=== PATIENT | female | born 1995 | race Two or more races ===

== ENCOUNTER 2024-02-18 14:55 | Observation (INO) | payer BC ==
[~2024-02-18] VITALS: Ht 167.6 cm; Wt 86.6 kg
[~2024-02-18 14:55] MED LIST: METO-281 PO; PANT40TA2 PO
[2024-02-18] MEDS ORDERED: PREN1TAB71 OR (15:13)
[2024-02-18] MEDS: BETAMETHASONE ACET (30mg/5ml) 5ml Vial 6mg/ml IM ONE (15:58)
== END 2024-02-18 16:26 | disposition home or self-care (01) ==
LOC: UNDOADMOB 14:55 → LDRP 14:55 → UNDODISOB 16:26
PROVIDERS: ADMIT Obstetrics & Gynecology; ATTEND Obstetrics & Gynecology
DX: O99.612 Diseases of the digestive system complicating pregnancy, second trimester (principal); K29.70 Gastritis, unspecified, without bleeding; O21.2 Late vomiting of pregnancy; Z3A.26 26 weeks gestation of pregnancy
CPT/HCPCS: 59025; 81002; 96372; G0378

== ENCOUNTER 2024-05-23 16:50 | Observation (INO) | payer BC ==
[~2024-05-23 16:50] MED LIST changes: +PREN1TAB71 OR
== END 2024-05-23 18:49 | disposition home or self-care (01) ==
LOC: LDRP 16:50
PROVIDERS: ADMIT Obstetrics & Gynecology; ATTEND Obstetrics & Gynecology
DX: O48.0 Post-term pregnancy (principal); O26.893 Other specified pregnancy related conditions, third trimester; R10.9 Unspecified abdominal pain; Z3A.40 40 weeks gestation of pregnancy
CPT/HCPCS: 59025; 76818; 81002; 94760; G0378

== ENCOUNTER 2024-05-24 07:21 | Observation (INO) | payer BC ==
[~2024-05-24] VITALS: Ht 167.6 cm; Wt 91.6 kg
== END 2024-05-24 08:50 | disposition home or self-care (01) ==
LOC: LDRP 07:21 → UNDOADMOB 07:21 → LDRP 07:29 → UNDODISOB 08:50
PROVIDERS: ADMIT Obstetrics & Gynecology; ATTEND Obstetrics & Gynecology
DX: O47.1 False labor at or after 37 completed weeks of gestation (principal); O48.0 Post-term pregnancy; Z3A.40 40 weeks gestation of pregnancy
CPT/HCPCS: 59025; 81002; 94760; G0378

== ENCOUNTER 2024-05-25 11:17 | Inpatient (IN) | payer BC ==
[~2024-05-25] VITALS: Ht 167.6 cm; Wt 91.6 kg
[2024-05-25] MEDS ORDERED: BUTORPHANOL TARTRATE 2 MG/1 ML VIAL IV PRN ×2 (11:45)
[2024-05-25] MEDS ORDERED: LIDOCAINE 2%HCL (LOCAL ANESTH.) INJ 20ML MDV IJ PRN (11:45)
[2024-05-25 12:19] LABS: Basophils # (auto) 0 10 ^3/uL (0-0.2); Basophils % (auto) 0.3 % (0.0-2.0); Eosinophils # (auto) 0.1 10 ^3/uL (0-0.8); Eosinophils % (auto) 0.8 % (0.0-7.0); Hematocrit 36.3 % (36.0-46.0); Hemoglobin 12.9 g/dL (12.2-16.2); Lymphocytes # (auto) 1.7 10 ^3/uL (0.4-5.4); Lymphocytes % (auto) 20.6 % (10.0-50.0); Mean Corpuscular Hemoglobin 31.9 pg (28.0-32.0); Mean Corpuscular Hgb Conc. 35.5 g/dL (32.0-36.0); Mean Corpuscular Volume 89.7 fL (80.0-100.0); Monocytes # (auto) 0.7 10 ^3/uL (0-1.3); Monocytes % (auto) 8.4 % (0.0-12.0); Neutrophils # (auto) 5.8 10 ^3/uL (1.6-8.6); Neutrophils % (auto) 69.9 % (37.0-80.0); Nucleated Red Blood Cells % 0.1 %; Red Blood Cells 4.04 10^6/uL (4.0-5.20); Red Cell Distribution Width 13.7 % (11.8-14.3); White Blood Cell 8.4 10^3/uL (4.4-10.8)
[2024-05-25 12:27] LABS: Urine Bacteria FEW /hpf (None Seen); Urine Blood 1+ /uL (Negative); Urine Clarity Clear (Clear); Urine Color Yellow (Yellow); Urine Protein, UAD Negative (Negative); Urine Specific Gravity 1.011 (1.001-1.035); Urine Urobilinogen 2 mg/dL (Negative); Urine WBC 5 /hpf (0 - 5)
[2024-05-25 12:30] LABS: INR 1.02 (0.9-1.15); Partial Thromboplastin Time 26.4 SEC (24.5-34.5); Prothrombin Time 10.8 sec (9.3-11.8)
[2024-05-25 12:42] LABS: Alanine Aminotransferase 151 U/L (7-40); Albumin 3.9 g/dL (3.2-4.8); Alkaline Phosphatase 282 U/L (46-116); Anion Gap 6 (5-15); Aspartate Aminotransferase 57 U/L (13-40); Bilirubin, Total 1.1 mg/dL (0.2-1.0); Calcium 9.5 mg/dL (8.5-10.1); Carbon Dioxide 22 mmol/L (20-30); Chloride 108 mmol/L (98-107); Glucose 75 mg/dL (74-106); Potassium 3.9 mmol/L (3.5-5.1); Sodium 136 mmol/L (136-145); Total Protein 6.4 g/dL (5.7-8.2)
[2024-05-25 12:43] LABS: BUN/Creatinine Ratio 12.5 (10.0-20.0); Blood Urea Nitrogen < 5 mg/dL (9-23)
[2024-05-25 12:52] LABS: Amphetamine Screen, Urine Neg (NEGATIVE)
[2024-05-25] MEDS: miSOPROStol 50 MCG per PRE-CUT 1/2 TAB PO PRN (12:52)
[2024-05-25 12:53] LABS: Barbiturate Scree,Urine Neg (NEGATIVE); Benzodiazephine Screen, Urine Neg (NEGATIVE); Cannabinoid Screen, Urine Neg (NEGATIVE); Cocaine Screen, Urine Neg (NEGATIVE); Opiate Scree,Urine Neg (NEGATIVE); Phencyclidine Screen, Urine Neg (NEGATIVE)
[2024-05-25] MEDS: LACTATED RINGER'S 1,000 ML IV SCH (18:20)
[2024-05-25] MEDS: LACTATED RINGER'S 1,000 ML IV ONE (18:23)
[2024-05-25] MEDS: ROPIVACAINE HCL 200 ML ONE (18:23)
[2024-05-25] MEDS ORDERED: URSODIOL 300 MG CAP PO SCH (18:30)
[2024-05-25] MEDS: URSODIOL 300 MG CAP PO SCH (19:29)
[2024-05-25] MEDS ORDERED: TERBUTALINE SULFATE 1 MG/ML 1ML VIAL SC PRN (19:45)
[2024-05-25] MEDS: LACT. RINGERS/OXYTOCIN 20UNITS 1,000 ML IV SCH (20:31)
[2024-05-25] MEDS ORDERED: DIPHENOXYLATE W/ATROPINE 2.5 MG TAB PO PRN (23:45)
[2024-05-25] MEDS ORDERED: CARBOPROST TROMETHAMINE 250 MCG/1ML VIAL IM PRN (23:45)
[2024-05-25] MEDS ORDERED: ONDANSETRON HCL 4 MG/2 ML VIAL IV PRN (23:45)
[2024-05-26] MEDS: LACT. RINGERS/OXYTOCIN 20UNITS 500 ML IV ONE ×2 (05:16→05:42)
[2024-05-26] MEDS: METHYLERGONOVINE MALEATE 0.2 MG/ML AMP IM PRN (05:19)
[2024-05-26] MEDS: miSOPROStol 100 mcg TAB PR PRN (05:20)
[2024-05-26] MEDS: miSOPROStol 100 mcg TAB SL PRN (05:25)
[2024-05-26] MEDS: WITCH HAZEL-GLYCERIN PAD TOP PRN (05:26)
[2024-05-26] MEDS: PHISODERM TOP SOLN 240ML BTL TOP PRN (05:26)
[2024-05-26] MEDS: DERMOPLAST 60ML BOTTLE TOP PRN (05:26)
[2024-05-26] MEDS: ePHEDrine SULFATE 50 MG/ML AMP IV ONE (06:00)
[2024-05-26] MEDS: ePHEDrine SULFATE 50 MG/ML AMP ONE (06:00)
[2024-05-26] MEDS: CARBOPROST TROMETHAMINE 250 MCG/1ML VIAL IM ONE (06:00)
[2024-05-26] MEDS ORDERED: ACETAMINOPHEN 325 MG TAB PO PRN (06:00)
[2024-05-26] MEDS: TRANEXAMIC ACID 1,000 MG in SODIUM CHL 0.9% 100 ML IV ONE (06:17)
[2024-05-26] MEDS: IBUPROFEN 600 MG TAB PO PRN (06:30)
[2024-05-26 07:06] LABS: RPR Non Reactive (Non Reactive)
[2024-05-26] MEDS: OXYTOCIN 10UNIT/ML 1ML VIAL IM ONE (07:16)
[2024-05-26] MEDS: PRENATAL VITAMIN TAB PO SCH (09:44)
[2024-05-26 11:30] VITALS: PULSE 77; RESP 18; TEMP 98.3; O2SAT 97
[2024-05-26 15:30] VITALS: BP 116/64; PULSE 81; RESP 18; TEMP 98.3; O2SAT 97
[2024-05-26] MEDS ORDERED: IBU600T PO ×2 (18:54)
[2024-05-26] MEDS ORDERED: DOCU-265 PO ×2 (18:54)
[2024-05-26] MEDS ORDERED: PREN1TAB71 PO ×2 (18:54)
[2024-05-26 18:55] VITALS: BP 112/77; PULSE 82; RESP 16; TEMP 97.8; O2SAT 97
[2024-05-26] MEDS: DOCUSATE SOD 100 MG CAP PO SCH (22:08)
[2024-05-26 23:02] VITALS: BP 107/70; PULSE 90; RESP 16; TEMP 97.8; O2SAT 97
[2024-05-27 03:12] VITALS: BP 107/65; PULSE 78; RESP 16; TEMP 97.9; O2SAT 95
[2024-05-27 07:17] VITALS: BP 120/67; PULSE 78; RESP 16; TEMP 97.6; O2SAT 98
[2024-05-27 08:52] LABS: Basophils # (auto) 0 10 ^3/uL (0-0.2); Basophils % (auto) 0.3 % (0.0-2.0); Eosinophils # (auto) 0.1 10 ^3/uL (0-0.8); Eosinophils % (auto) 1.3 % (0.0-7.0); Hematocrit 32.1 % (36.0-46.0); Hemoglobin 11.4 g/dL (12.2-16.2); Lymphocytes # (auto) 2.3 10 ^3/uL (0.4-5.4); Lymphocytes % (auto) 20.2 % (10.0-50.0); Mean Corpuscular Hemoglobin 31.8 pg (28.0-32.0); Mean Corpuscular Hgb Conc. 35.4 g/dL (32.0-36.0); Mean Corpuscular Volume 89.8 fL (80.0-100.0); Monocytes # (auto) 0.8 10 ^3/uL (0-1.3); Monocytes % (auto) 7.4 % (0.0-12.0); Neutrophils % (auto) 70.8 % (37.0-80.0); Red Blood Cells 3.57 10^6/uL (4.0-5.20); Red Cell Distribution Width 13.9 % (11.8-14.3); White Blood Cell 11.3 10^3/uL (4.4-10.8)
[2024-05-27 19:06] LABS: Treponema pallidum Ab (FTA-Ab) Non Reactive (Non Reactive)
== END 2024-05-27 10:39 | disposition home or self-care (01) | DRG 806 ==
LOC: LDRP 11:17
PROVIDERS: ADMIT Obstetrics & Gynecology; ATTEND Obstetrics & Gynecology
PROC: 10E0XZZ Delivery of Products of Conception, External Approach (ICD-10-PCS; principal; 2024-05-26)
PROC: 3E0R3BZ Introduction of Anesthetic Agent into Spinal Canal, Percutaneous Approach (ICD-10-PCS; 2024-05-26)
PROC: 00HU33Z Insertion of Infusion Device into Spinal Canal, Percutaneous Approach (ICD-10-PCS; 2024-05-26)
PROC: 3E033VJ Introduction of Other Hormone into Peripheral Vein, Percutaneous Approach (ICD-10-PCS; 2024-05-26)
PROC: 3E0DXGC Introduction of Other Therapeutic Substance into Mouth and Pharynx, External Approach (ICD-10-PCS; 2024-05-26)
DX: O48.0 Post-term pregnancy (principal); O26.643 Intrahepatic cholestasis of pregnancy, third trimester; Z37.0 Single live birth; K76.89 Other specified diseases of liver; Z3A.40 40 weeks gestation of pregnancy
CPT/HCPCS: 36415; 59025; 59200; 59409; 62282; 80053; 80307; 81001; 81002; 85025; 85610; 85730; 86592; 86803; 86850; 86900; 86901; 86920; 94760; 94762; 96360; 96361; 96365; 96366; 96372; G0378; J2590

== ENCOUNTER 2025-11-09 09:57 | Inpatient (IN) | payer BC ==
[~2025-11-09] VITALS: Ht 167.6 cm; Wt 75.0 kg
[~2025-11-09 09:57] MED LIST changes: +DOCU-265 PO; +IBU600T PO; -METO-281 PO; -PREN1TAB71 OR; +PREN1TAB71 PO
--- NOTE | 2025-11-09 11:01 | ED.PDOC ---
History of Present Illness HPI Comments 30-year-old female presents to the ER with sister and prior medical history of gastritis and a chief complaint of abdominal pain. Patient reports on having had diffuse abdominal pain for the past two weeks but has worsened on Friday of 11/07/2025, do from constant abdominal pain and nausea and vomiting. 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 Denies any other symptoms at this time. Denies chills, fever, /D, SOB, CP. No other associated symptoms, modifiers, recent injuries or sick contacts present at this time. Chief Complaint: Abdominal Pain Time Seen by MD: 10:30 Reviewed Notes: Nurses Notes, Medications, Allergies Allergies: Coded Allergies: NO KNOWN ALLERGIES (Unverified , 02/17/24) Home Meds Active Scripts Docusate Sodium (Docusate Sodium) 100 Mg Cap, 100 MG PO HS PRN for 30 Days, #30 CAP 2 Refills Prov:DEAN CORONA [facility] 05/26/24 Ibuprofen Micronized (MOTRIN TABLET) 600 Mg Tb, 600 MG PO Q6HP PRN for 20 Days, #80 TAB Prov:DEAN CORONA [facility] 05/26/24 Vit W/ Ferrous Fumara (PNV PLUS MULTIVI) Plus Tab, 1 TAB PO DAILY for 90 Days, #90 TAB 3 Refills Prov:DEAN CORONA [facility] 05/26/24 Pantoprazole Sodium Sesquihydr (Protonix) 40 Mg Tab, 40 MG PO DAILY, #30 TAB 3 Refills Prov:DEAN CORONA [facility] 02/17/24 Information Source: Patient Mode of Arrival: Ambulatory Severity: Moderate Timing: Weeks Duration: Since onset Prehospital treatment: None Past Medical History Past Medical History (Other): Gastritis pregnancies: Surgical History: Denies all surgeries PIPE COREMAKER History: No Pertinent PIPE COREMAKER History Family History Family History: Reviewed,noncontributory to illness, Unknown Social History Smoker: Non-Smoker Alcohol: Denies ETOH Use Drugs: Denies Drug Use Lives In: Home Constitutional: denies: chills, diaphoresis, fatigue, fever, malaise, sweats, weakness, others EENTM: denies: blurred vision, double vision, ear bleeding, ear discharge, ear drainage, ear pain, ear ringing, eye pain, eye redness, hearing loss, mouth pain, mouth swelling, nasal discharge, nose bleeding, nose congestion, nose pain, photophobia, tearing, throat pain, throat swelling, voice changes, others Respiratory: denies: cough, hemoptysis, orthopnea, SOB at rest, shortness of breath, SOB with excertion, stridor, wheezing, others Cardiovascular: denies: chest pain, dizzy spells, diaphoresis, Dyspnea on exertion, edema, irregular heart beat, left arm pain, lightheadedness, palpitations, PND, syncope, others Gastrointestinal: reports: abdominal pain, nausea, vomiting; denies: abdomen distended, blood streaked bowels, constipated, diarrhea, dysphagia, difficulty swallowing, hematemesis, melena, poor appetite, poor fluid intake, rectal bleeding, rectal pain, others Genitourinary: denies: abnormal vagina bleeding, burning, dyspareunia, dysuria, flank pain, frequency, hematuria, incontinence, pain, , vagina discharge, urgency, others Neurological: denies: dizziness, fainting, headache, left sided numbness, left sided weakness, numbness, paresthesia, pre-existing deficit, right sided numbness, right sided weakness, seizure, speech problems, tingling, tremors, weakness, others Musculoskeletal: denies: back pain, gout, joint pain, joint swelling, muscle pain, muscle stiffness, neck pain, others Integumetry: denies: bruises, change in color, change in hair/nails, dryness, laceration, lesions, lumps, rash, wounds, others Allergic/Immunocompromised: denies: Difficulty Healing, Frequent Infections, Hives, Itching, others Hematologic/Lymphatic: denies: anemia, blood clots, easy bleeding, easy bruising, swollen glands, others Endocrine: denies: excessive hunger, excessive sweating, excessive thirst, excessive urination, flushing, intolerance to cold, intolerance to heat, unexplained weight gain, unexplained weight loss, others Psychiatric: denies: anxiety, bipolar disorder, depression, hopeless, panic disorder, schizophrenia, sleepless, suicidal, others All Other Systems: Reviewed and Negative Physical Exam General Appearance: Moderate Distress, Normal HEENT: Normal ENT Inspection, Pharynx Normal, TMs Normal Neck: Full Range of Motion, Non-Tender, Normal, Normal Inspection Respiratory: Chest Non-Tender, Lungs Clear, No Accessory Muscle Use, No Respiratory Distress, Normal Breath Sounds Cardiovascular: No Edema, No JVD, No Murmur, No Gallop, Normal Peripheral Pulses, Regular Rate/Rhythm Breast Exam: Deferred Gastrointestinal: No Organomegaly, No Pulsatile Mass, Normal Bowel Sounds, Soft, Suprapubic Genitalia: Deferred Pelvic: Deferred Rectal: Deferred Extremities: No calf tenderness, Normal capillary refill, Normal inspection, Normal range of motion, Non-tender, No pedal edema Musculoskeletal : Apperance: Normal Neurologic: Alert, 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 Was a procedure done?: No Differential Dx Considerations may include: Colitis Urinary tract infection X-Ray, Labs, Meds, VS Vital Signs Date Time Temp Pulse Resp B/P (MAP) Pulse Ox O2 Delivery O2 Flow Rate FiO2 11/09/25 14:41 72 20 96 Room Air* 0 21 11/09/25 14:35 69 12 120/67 (84) 99 11/09/25 13:00 60 18 122/77 (92) 98 11/09/25 12:21 54 18 118/77 11/09/25 11:40 98.2 69 20 126/84 (98) 96 98.2 11/09/25 11:39 69 20 126/84 11/09/25 10:04 98.0 73 14 109/79 98 98.0 Lab Test 11/09/25 12:58 11/09/25 10:48 11/09/25 10:44 11/09/25 10:40 Range/Units Lactic Acid Level 2.9 *H 0.4-2.0 mmol/L White Blood Count 13.9 H 4.4-10.8 10^3/uL Red Blood Count 5.72 H 4.0-5.20 10^6/uL Hemoglobin 17.6 H 12.2-16.2 g/dL Hematocrit 49.6 H 36.0-46.0 % Mean Corpuscular Volume 86.8 80.0-100.0 fL Mean Corpuscular Hemoglobin 30.8 28.0-32.0 pg Mean Corpuscular Hemoglobin Concent 35.5 32.0-36.0 g/dL Red Cell Distribution Width 12.8 11.8-14.3 % Platelet Count 344 140-450 10^3/uL Mean Platelet Volume 7.7 6.9-10.8 fL Neutrophils (%) (Auto) 72.6 37.0-80.0 % Lymphocytes (%) (Auto) 19.0 10.0-50.0 % Monocytes (%) (Auto) 8.0 0.0-12.0 % Eosinophils (%) (Auto) 0.0 0.0-7.0 % Basophils (%) (Auto) 0.4 0.0-2.0 % Neutrophils # (Auto) 10.1 H 1.6-8.6 10 ^3/uL Lymphocytes # (Auto) 2.6 0.4-5.4 10 ^3/uL Monocytes # (Auto) 1.1 0-1.3 10 ^3/uL Eosinophils # (Auto) 0 0-0.8 10 ^3/uL Basophils # (Auto) 0.1 0-0.2 10 ^3/uL Nucleated Red Blood Cells 0.1 % Sodium Level 136 136-145 mmol/L Potassium Level 2.9 L 3.5-5.1 mmol/L Chloride Level 94 L 98-107 mmol/L Carbon Dioxide Level 29 20-31 mmol/L Anion Gap 13 5-15 Blood Urea Nitrogen 13 9-23 mg/dL Creatinine 0.83 0.550-1.02 mg/dL Glomerular Filtration Rate Calc 98 >90 mL/min BUN/Creatinine Ratio 15.7 10.0-20.0 Serum Glucose 120 H 74-106 mg/dL Calcium Level 10.2 8.7-10.4 mg/dL Urine Color Yellow Yellow Urine Clarity Turbid H Clear Urine pH 8.0 5.0-9.0 Urine Specific [place] 1.026 1.001-1.035 Urine Protein 2+ H Negative Urine Ketones 3+ H Negative Urine Blood Trace H Negative /uL Urine Nitrite Negative Negative Urine Bilirubin Negative Negative Urine Urobilinogen 2 H Negative mg/dL Urine Leukocyte Esterase Trace Negative /uL Urine RBC 5 0 - 4 /hpf Urine Microscopic WBC 4 0-5 /HPF Urine Squamous Epithelial Cells Mod <5 /hpf Urine Bacteria Few H None Seen /hpf Urine Glucose Normal Normal mg/dL Magnesium Level Pending Total Bilirubin Pending Direct Bilirubin Pending Aspartate Amino Transferase (AST) Pending Alanine Aminotransferase (ALT) Pending Alkaline Phosphatase Pending C-Reactive Protein High Sensitivity Pending Total Protein Pending Albumin Pending Thyroid Stimulating Hormone (TSH) Pending Current Medications Medications (Trade) Dose Ordered Sig/Sudhir Route Start Time Stop Time Status Last Admin Ondansetron HCl (Zofran) 4 mg ONCE ONCE IV 11/09/25 10:30 11/09/25 10:31 DC 11/09/25 11:38 Sodium Chloride 1,000 ml @ 1,000 mls/hr Q1H ONCE IVB 11/09/25 10:30 11/09/25 11:29 DC 11/09/25 11:39 Morphine Sulfate 4 mg ONCE ONCE IV 11/09/25 10:30 11/09/25 10:31 DC 11/09/25 11:39 Potassium Bicarbonate (Klor-Con/Ef) 50 meq ONCE ONCE PO 11/09/25 13:00 11/09/25 13:01 DC 11/09/25 14:35 Ceftriaxone Sodium 50 ml @ 100 mls/hr ONCE ONCE IV 11/09/25 13:00 11/09/25 13:29 DC 11/09/25 13:27 Metronidazole 100 ml @ 100 mls/hr ONCE ONCE IV 11/09/25 13:00 11/09/25 13:59 DC 11/09/25 13:50 Prochlorperazine Edisylate (Compazine Inj) 10 mg ONCE ONCE IV 11/09/25 13:00 11/09/25 13:01 DC 11/09/25 14:14 Patient alert. Complaining of suprapubic pain. Vitals stable. Answering questions. Ambulating. Establish intravenous access. Was given fluids. Was given morphine. Was given Zofran. UA shows UTI. Was given Rocephin. Was given Flagyl. CT scan of the abdomen reviewed does not show any acute changes. Continues to have pain. Explained to the patient that she will be admitted for further studies. Time of 1ST Reevaluation: 11:00 Reevaluation 1ST: Unchanged Patient Education/Counseling: Diagnosis, Treatment, Prognosis Family Education/Counseling: No Family Present SEPSIS Sepsis Screen Date sepsis recognized/suspect: Nov 09, 2025 Time Sepsis recognized/suspect: 1006 Recent Procedure: No On Antibiotic Therapy: No Respiratory Rate >20: No Heart Rate >90: No Temp<36 C (96.8 F) or >38.3 C: No SBP <90 or MAP <65 mmHG: No New Acute Mental Status Change: No Is the patient on CPAP, BIPAP,: No Physician Orders Ct Ab Pel Wo Con-No Oral Or Iv (11/09/25 10:19) Blood Culture (11/09/25 12:47) Vital Signs Date Time Temp Pulse Resp B/P (MAP) Pulse Ox O2 Delivery O2 Flow Rate FiO2 11/09/25 14:41 72 20 96 Room Air* 0 21 11/09/25 14:35 69 12 120/67 (84) 99 11/09/25 13:00 60 18 122/77 (92) 98 11/09/25 12:21 54 18 118/77 11/09/25 11:40 98.2 69 20 126/84 (98) 96 98.2 11/09/25 11:39 69 20 126/84 11/09/25 10:04 98.0 73 14 109/79 98 98.0 Laboratory Tests Test 11/09/25 10:48 11/09/25 12:58 White Blood Count 13.9 10^3/uL (4.4-10.8) H Lactic Acid Level 2.9 mmol/L (0.4-2.0) *H Medications Medications Dose Ordered Sig/Sudhir Route Start Time Stop Time Status Last Admin Dose Admin Ceftriaxone Sodium 50 ml @ 100 mls/hr ONCE ONCE IV 11/09/25 13:00 11/09/25 13:29 DC 11/09/25 13:27 Metronidazole 100 ml @ 100 mls/hr ONCE ONCE IV 11/09/25 13:00 11/09/25 13:59 DC 11/09/25 13:50 Morphine Sulfate 4 mg ONCE ONCE IV 11/09/25 10:30 11/09/25 10:31 DC 11/09/25 11:39 Ondansetron HCl 4 mg ONCE ONCE IV 11/09/25 10:30 11/09/25 10:31 DC 11/09/25 11:38 Potassium Bicarbonate 50 meq ONCE ONCE PO 11/09/25 13:00 11/09/25 13:01 DC 11/09/25 14:35 Prochlorperazine Edisylate 10 mg ONCE ONCE IV 11/09/25 13:00 11/09/25 13:01 DC 11/09/25 14:14 Sodium Chloride 1,000 ml @ 1,000 mls/hr Q1H ONCE IVB 11/09/25 10:30 11/09/25 11:29 DC 11/09/25 11:39 Departure 1 Departure Time of Disposition: 13:10 Impression: Primary Impression: Sepsis due to urinary tract infection Additional Impressions: Acute abdominal pain Hypokalemia Disposition: ADMITTED INPATIENT Admit to: Med Surg Condition: Guarded Critical Care Note Critical Care Time?: No Stability Stability form required: No Heart Score Heart Score: Heart Score Response (Comments) Value History N/A 0 EKG N/A 0 Age N/A 0 Risk Factors N/A 0 Troponin N/A 0 Total 0 I personally scribed for PANCHO BARRERA MD ([email or web address]) on 11/09/25 at 11:01. Electronically submitted by Ignacio Castellon ([email or web address]). PANCHO BARRERA MD Nov 09, 2025 11:01
[2025-11-09 11:04] LABS: Hematocrit 49.6 % (36.0-46.0); Hemoglobin 17.6 g/dL (12.2-16.2); Mean Corpuscular Hemoglobin 30.8 pg (28.0-32.0); Mean Corpuscular Volume 86.8 fL (80.0-100.0); Nucleated Red Blood Cells % 0.1 %
[2025-11-09 11:09] LABS: Urine Protein, UAD 2+ (Negative)
[2025-11-09 11:14] LABS: Anion Gap 13 (5-15); Calcium 10.2 mg/dL (8.7-10.4); Carbon Dioxide 29 mmol/L (20-31); Chloride 94 mmol/L (98-107); Potassium 2.9 mmol/L (3.5-5.1); Sodium 136 mmol/L (136-145)
--- NOTE | 2025-11-09 11:18 | DVH ---
INDICATION: colitis TECHNIQUE: CT axial images of the abdomen and pelvis are obtained without contrast. Coronal and sagittal reformats were obtained. Radiation Dose Information: CTDI volume is 12 mGy. Dose-length product is 629 mGy*cm COMPARISON: None FINDINGS: There is limited interpretation of the abdomen and pelvis without administration of intravenous contrast. Lung bases demonstrate no pleural effusion. 4 mm left lower lobe calcified nodule. Adrenal glands, spleen, pancreas and liver unremarkable in shape. No CT evidence for cholelithiasis. There is no hydronephrosis, nephrolithiasis. Stomach is partially distended. Small bowel loops are normal in caliber. Moderate volume stool in the colon. Normal appendix. Bladder is partially distended. No free pelvic fluid. No inguinal lymphadenopathy. No aggressive osseous process. IMPRESSION: Limited evaluation without contrast. Grossly unremarkable noncontrast CT of the abdomen / pelvis.
[2025-11-09 11:21] LABS: BUN/Creatinine Ratio 15.7 (10.0-20.0); Blood Urea Nitrogen 13 mg/dL (9-23)
[2025-11-09 11:22] LABS: Glucose 120 mg/dL (74-106)
[2025-11-09] MEDS: ONDANSETRON HCL 4 MG/2 ML VIAL IV ONE (11:38)
[2025-11-09] MEDS: MORPHINE SULFATE 4 MG/ML SYR/VIAL IV ONE (11:39)
[2025-11-09] MEDS: SODIUM CHLORIDE 0.9% 1,000 ML IVB ONE (11:39)
[2025-11-09 11:40] VITALS: TEMP 98.2
[2025-11-09] MEDS ORDERED: HYDROmorphone HCL 2 MG/ML VL/or syr IV ONE (13:00)
[2025-11-09 13:52] LABS: Lactic Acid w/Reflex 2.9 mmol/L (0.4-2.0)
[2025-11-09] MEDS: PROCHLORPERAZINE EDISYLATE 5 MG/ML 2ML VIAL IV ONE (14:14)
[2025-11-09 14:35] VITALS: BP 120/67
[2025-11-09] MEDS: POTASSIUM EFFERVESENT TAB 25 MEQ PO ONE (14:35)
[2025-11-09 14:41] VITALS: PULSE 72; RESP 20; O2SAT 96
[2025-11-09] MEDS ORDERED: ONDANSETRON HCL 4 MG/2 ML VIAL IV PRN (15:00)
[2025-11-09] MEDS ORDERED: DICYCLOMINE HCL (10MG/ML) 2 ML AMPULE IM SCH (15:00)
[2025-11-09] MEDS ORDERED: PANTOPRAZOLE 40 MG/10 ML VIAL INJ IV SCH (15:00)
[2025-11-09] MEDS ORDERED: HYDROcodone-ACET 5/325MG TAB PO PRN (15:00)
[2025-11-09] MEDS ORDERED: ACETAMINOPHEN 325 MG TAB PO PRN (15:00)
[2025-11-09] MEDS ORDERED: DOCUSATE SOD 100 MG CAP PO PRN (15:00)
[2025-11-09] MEDS ORDERED: METOCLOPRAMIDE HCL 5MG/ml INJ 2ml VIAL IV PRN (15:00)
[2025-11-09] MEDS ORDERED: SODIUM CHLORIDE 0.9% 1,000 ML IV SCH (15:00)
[2025-11-09 15:40] LABS: Alkaline Phosphatase 83.0 U/L (46-116); Magnesium 2.2 mg/dL (1.6-2.6)
[2025-11-09 15:42] LABS: Alanine Aminotransferase 41.0 U/L (7-40); Albumin 5.6 g/dL (3.2-4.8); Bilirubin, Direct 0.7 mg/dL (<0.3); Bilirubin, Total 2.5 mg/dL (0.2-1.0); Total Protein 9.0 g/dL (5.7-8.2)
[2025-11-09] MEDS ORDERED: MORPHINE SULFATE 4 MG/ML SYR/VIAL IV ONE (15:45)
[2025-11-09 15:47] LABS: INR 1.21 (0.9-1.15); Partial Thromboplastin Time 25.9 SEC (24.5-34.5); Prothrombin Time 12.6 sec (9.3-11.8)
--- NOTE | 2025-11-09 16:22 | DVHHPRES ---
History of Present Illness Resident Creating Document: MANUEL VALDEZ RESIDENT History of Present Illness Lashaun presents with stress and pain as her primary concerns. She reports that stress brought her to seek medical attention, though she states she does not remember herself clearly. She describes experiencing pain that is "sort of difficult, but then slowly it gets better" and notes that she is getting "much less pain at this point." The exact location of her pain is unclear as she was unable to specify where it is more painful when asked. The patient lives alone and denies taking any medications for stress. She reports very rare alcohol use and states she has not been able to use alcohol lately. She denies any surgical history. She mentions starting to take "armrests" as a supplement for good health, though the nature of this supplement is unclear from her description. She reports having difficulty with vomiting and being unable to keep food down, stating she cannot keep up with anything when asked about her ability to eat. PMH: None PSH: None Family history: None Social History - Substance Use: Alcohol use described as "very rare" and reports not being able to use it lately - Living Situation: Lives alone - Marital Status: Recently to [place] since Friday - Stress: Reports stress as a contributing factor to current situation Medications and Supplements - Unknown supplement for gut health Review of Systems Gastrointestinal: Positive for vomiting, negative for ability to keep food down. Musculoskeletal: Positive for pain that is initially difficult but gradually improves. Psychiatric: Positive for stress. Review of Systems Allergies: Coded Allergies: NO KNOWN ALLERGIES (Unverified , 02/17/24) Exam Vital Signs Vital Signs Date Time Temp Pulse Resp B/P (MAP) Pulse Ox O2 Delivery O2 Flow Rate FiO2 11/09/25 14:41 72 20 96 Room Air* 0 21 11/09/25 14:35 120/67 (84) 11/09/25 11:40 98.2 98.2 Exam Pt is lying on bed General Appearance: Alert, Oriented X3, Cooperative, severe distress HEENT: Atraumatic, Mucous membranes moist/pink Respiratory: Clear to auscultation, Normal air movement, No added sounds Cardiovascular: Regular rate, Normal S1, Normal S2, No murmurs Abdominal: generalized tenderness Extremities: No edema, Normal pulses, No tenderness/swelling Skin: No Significant rash, except past surgical scars Neuro: Normal speech, sensorimotor deficits none Psych/Mental Status: Mental status NL, Mood NL Nurse was there as junior mechanical engineer during examination Labs/Xrays Labs Test 11/09/25 15:16 11/09/25 14:58 11/09/25 10:48 11/09/25 10:44 Range/Units Prothrombin Time 12.6 H 9.3-11.8 sec Prothrombin Time INR 1.21 H 0.9-1.15 Activated Partial Thromboplast Time 25.9 24.5-34.5 SEC Lactic Acid Level 1.7 0.4-2.0 mmol/L White Blood Count 13.9 H 4.4-10.8 10^3/uL Red Blood Count 5.72 H 4.0-5.20 10^6/uL Hemoglobin 17.6 H 12.2-16.2 g/dL Hematocrit 49.6 H 36.0-46.0 % Mean Corpuscular Volume 86.8 80.0-100.0 fL Mean Corpuscular Hemoglobin 30.8 28.0-32.0 pg Mean Corpuscular Hemoglobin Concent 35.5 32.0-36.0 g/dL Red Cell Distribution Width 12.8 11.8-14.3 % Platelet Count 344 140-450 10^3/uL Mean Platelet Volume 7.7 6.9-10.8 fL Neutrophils (%) (Auto) 72.6 37.0-80.0 % Lymphocytes (%) (Auto) 19.0 10.0-50.0 % Monocytes (%) (Auto) 8.0 0.0-12.0 % Eosinophils (%) (Auto) 0.0 0.0-7.0 % Basophils (%) (Auto) 0.4 0.0-2.0 % Neutrophils # (Auto) 10.1 H 1.6-8.6 10 ^3/uL Lymphocytes # (Auto) 2.6 0.4-5.4 10 ^3/uL Monocytes # (Auto) 1.1 0-1.3 10 ^3/uL Eosinophils # (Auto) 0 0-0.8 10 ^3/uL Basophils # (Auto) 0.1 0-0.2 10 ^3/uL Nucleated Red Blood Cells 0.1 % Sodium Level 136 136-145 mmol/L Potassium Level 2.9 L 3.5-5.1 mmol/L Chloride Level 94 L 98-107 mmol/L Carbon Dioxide Level 29 20-31 mmol/L Anion Gap 13 5-15 Blood Urea Nitrogen 13 9-23 mg/dL Creatinine 0.83 0.550-1.02 mg/dL Glomerular Filtration Rate Calc 98 >90 mL/min BUN/Creatinine Ratio 15.7 10.0-20.0 Serum Glucose 120 H 74-106 mg/dL Calcium Level 10.2 8.7-10.4 mg/dL Urine Color Yellow Yellow Urine Clarity Turbid H Clear Urine pH 8.0 5.0-9.0 Urine Specific [place] 1.026 1.001-1.035 Urine Protein 2+ H Negative Urine Ketones 3+ H Negative Urine Blood Trace H Negative /uL Urine Nitrite Negative Negative Urine Bilirubin Negative Negative Urine Urobilinogen 2 H Negative mg/dL Urine Leukocyte Esterase Trace Negative /uL Urine RBC 5 0 - 4 /hpf Urine Microscopic WBC 4 0-5 /HPF Urine Squamous Epithelial Cells Mod <5 /hpf Urine Bacteria Few H None Seen /hpf Urine Glucose Normal Normal mg/dL Test 11/09/25 10:40 Range/Units Magnesium Level 2.2 1.6-2.6 mg/dL Total Bilirubin 2.5 H 0.2-1.0 mg/dL Direct Bilirubin 0.7 H <0.3 mg/dL Aspartate Amino Transferase (AST) 29 13-40 U/L Alanine Aminotransferase (ALT) 41 H 7-40 U/L Alkaline Phosphatase 83 46-116 U/L C-Reactive Protein High Sensitivity 0.11 <1.0 mg/dL Total Protein 9.0 H 5.7-8.2 g/dL Albumin 5.6 H 3.2-4.8 g/dL Thyroid Stimulating Hormone (TSH) 1.54 0.55-4.78 uIU/mL SEPSIS Sepsis Screen Date sepsis recognized/suspect: Nov 09, 2025 Time Sepsis recognized/suspect: 1006 Recent Procedure: No On Antibiotic Therapy: No Respiratory Rate >20: No Heart Rate >90: No Temp<36 C (96.8 F) or >38.3 C: No SBP <90 or MAP <65 mmHG: No New Acute Mental Status Change: No Is the patient on CPAP, BIPAP,: No Physician Orders Ct Ab Pel Wo Con-No Oral Or Iv (11/09/25 10:19) Blood Culture (11/09/25 12:47) Test, Urine (11/09/25 14:54) Admit (11/09/25 14:54) Code Status (11/09/25 14:54) Drug Screen (11/09/25 14:54) Type And Screen (11/09/25 15:19) Vital Signs Date Time Temp Pulse Resp B/P (MAP) Pulse Ox O2 Delivery O2 Flow Rate FiO2 11/09/25 14:41 72 20 96 Room Air* 0 21 11/09/25 14:35 69 12 120/67 (84) 99 11/09/25 13:00 60 18 122/77 (92) 98 11/09/25 12:21 54 18 118/77 11/09/25 11:40 98.2 69 20 126/84 (98) 96 98.2 11/09/25 11:39 69 20 126/84 11/09/25 10:04 98.0 73 14 109/79 98 98.0 Laboratory Tests Test 11/09/25 10:48 11/09/25 12:58 11/09/25 14:58 White Blood Count 13.9 10^3/uL (4.4-10.8) H Lactic Acid Level 2.9 mmol/L (0.4-2.0) *H 1.7 mmol/L (0.4-2.0) Medications Medications Dose Ordered Sig/Sudhir Route Start Time Stop Time Status Last Admin Dose Admin Ceftriaxone Sodium 50 ml @ 100 mls/hr ONCE ONCE IV 11/09/25 13:00 11/09/25 13:29 DC 11/09/25 13:27 100 MLS/HR Metronidazole 100 ml @ 100 mls/hr ONCE ONCE IV 11/09/25 13:00 11/09/25 13:59 DC 11/09/25 13:50 100 MLS/HR Morphine Sulfate 4 mg ONCE ONCE IV 11/09/25 10:30 11/09/25 10:31 DC 11/09/25 11:39 4 MG Ondansetron HCl 4 mg ONCE ONCE IV 11/09/25 10:30 11/09/25 10:31 DC 11/09/25 11:38 4 MG Potassium Bicarbonate 50 meq ONCE ONCE PO 11/09/25 13:00 11/09/25 13:01 DC 11/09/25 14:35 50 MEQ Prochlorperazine Edisylate 10 mg ONCE ONCE IV 11/09/25 13:00 11/09/25 13:01 DC 11/09/25 14:14 10 MG Sodium Chloride 1,000 ml @ 1,000 mls/hr Q1H ONCE IVB 11/09/25 10:30 11/09/25 11:29 DC 11/09/25 11:39 1,000 MLS/HR Assessment/Plan Assessment/Plan Lashaun presents with stress-related symptoms and pain of unclear etiology. Sepsis likely due to below Possible acute gastroenteritis Acute gastritis Elevated lactic acid Hypokalemia Plan: - symptomatic management with the Zofran and Reglan - Protonix and Carafate - IV antibiotics Flagyl on Rocephin - Provide IV fluids - correcting electrolyte abnormalities - pancultures - CT showed no acute changes - consider GI consult if needed GI PPX: Protonix VTE ppx: Lovenox Diet: NPO Goals of care addressed with the patient for more than 27 minutes: Full code status Case discussed with Dr. Quintana , patient and nurse Plan discussed with: Patient My Orders Orders - MANUEL VALDEZ Procedure Category Date Status Time Test, Urine LAB 11/09/25 Logged 14:54 Admit ADMIT 11/09/25 Transmitted 14:54 Code Status CODE 11/09/25 Transmitted 14:54 Drug Screen LAB 11/09/25 Logged 14:54 Visit Coding STANDARD RES Billing Provider: JEIMY QUINTANA MD Date of Service if different f: Nov 09, 2025 Common Visit Codes: 40296-CWAXCOU INP/OBS CARE (HIGH) Secondary Visit Codes: 90605-[id number] CARE PLAN 30 MINUTES MNAUEL VALDEZ Nov 09, 2025 16:22
--- NOTE | 2025-11-09 16:25 | DVHDSRES ---
Discharge Summary Date of Admission Resident Creating Document: MANUEL VALDEZ RESIDENT Nov 09, 2025 at 14:54 Date of Discharge: Nov 09, 2025 Admitting Diagnosis Sepsis Labs/Diagnostic Data: Laboratory Results Test 11/09/25 15:16 11/09/25 14:58 11/09/25 10:48 11/09/25 10:44 Prothrombin Time 12.6 sec (9.3-11.8) Prothrombin Time INR 1.21 (0.9-1.15) Activated Partial Thromboplast Time 25.9 SEC (24.5-34.5) Lactic Acid Level 1.7 mmol/L (0.4-2.0) White Blood Count 13.9 10^3/uL (4.4-10.8) Red Blood Count 5.72 10^6/uL (4.0-5.20) Hemoglobin 17.6 g/dL (12.2-16.2) Hematocrit 49.6 % (36.0-46.0) Mean Corpuscular Volume 86.8 fL (80.0-100.0) Mean Corpuscular Hemoglobin 30.8 pg (28.0-32.0) Mean Corpuscular Hemoglobin Concent 35.5 g/dL (32.0-36.0) Red Cell Distribution Width 12.8 % (11.8-14.3) Platelet Count 344 10^3/uL (140-450) Mean Platelet Volume 7.7 fL (6.9-10.8) Neutrophils (%) (Auto) 72.6 % (37.0-80.0) Lymphocytes (%) (Auto) 19.0 % (10.0-50.0) Monocytes (%) (Auto) 8.0 % (0.0-12.0) Eosinophils (%) (Auto) 0.0 % (0.0-7.0) Basophils (%) (Auto) 0.4 % (0.0-2.0) Neutrophils # (Auto) 10.1 10 ^3/uL (1.6-8.6) Lymphocytes # (Auto) 2.6 10 ^3/uL (0.4-5.4) Monocytes # (Auto) 1.1 10 ^3/uL (0-1.3) Eosinophils # (Auto) 0 10 ^3/uL (0-0.8) Basophils # (Auto) 0.1 10 ^3/uL (0-0.2) Nucleated Red Blood Cells 0.1 % Sodium Level 136 mmol/L (136-145) Potassium Level 2.9 mmol/L (3.5-5.1) Chloride Level 94 mmol/L (98-107) Carbon Dioxide Level 29 mmol/L (20-31) Anion Gap 13 (5-15) Blood Urea Nitrogen 13 mg/dL (9-23) Creatinine 0.83 mg/dL (0.550-1.02) Glomerular Filtration Rate Calc 98 mL/min (>90) BUN/Creatinine Ratio 15.7 (10.0-20.0) Serum Glucose 120 mg/dL (74-106) Calcium Level 10.2 mg/dL (8.7-10.4) Urine Color Yellow (Yellow) Urine Clarity Turbid (Clear) Urine pH 8.0 (5.0-9.0) Urine Specific [place] 1.026 (1.001-1.035) Urine Protein 2+ (Negative) Urine Ketones 3+ (Negative) Urine Blood Trace /uL (Negative) Urine Nitrite Negative (Negative) Urine Bilirubin Negative (Negative) Urine Urobilinogen 2 mg/dL (Negative) Urine Leukocyte Esterase Trace /uL (Negative) Urine RBC 5 /hpf (0 - 4) Urine Microscopic WBC 4 /HPF (0-5) Urine Squamous Epithelial Cells Mod /hpf (<5) Urine Bacteria Few /hpf (None Seen) Urine Glucose Normal mg/dL (Normal) Test 11/09/25 10:40 Magnesium Level 2.2 mg/dL (1.6-2.6) Total Bilirubin 2.5 mg/dL (0.2-1.0) Direct Bilirubin 0.7 mg/dL (<0.3) Aspartate Amino Transferase (AST) 29 U/L (13-40) Alanine Aminotransferase (ALT) 41 U/L (7-40) Alkaline Phosphatase 83 U/L (46-116) C-Reactive Protein High Sensitivity 0.11 mg/dL (<1.0) Total Protein 9.0 g/dL (5.7-8.2) Albumin 5.6 g/dL (3.2-4.8) Thyroid Stimulating Hormone (TSH) 1.54 uIU/mL (0.55-4.78) Other Laboratory Tests 12/24/25 10:48 Brief Hx & Hospital Course: The patient, Lashaun, presented with severe distress characterized by stress, vomiting, inability to tolerate oral intake, and generalized abdominal tenderness. Her evaluation was notable for suspected sepsis, likely secondary to a gastrointestinal source, with elevated lactic acid and hypokalemia. Differential diagnoses included acute gastroenteritis and acute gastritis. Imaging (CT) showed no acute findings. She was started on IV fluids, electrolyte correction, IV antibiotics (Flagyl and Rocephin), antiemetics (Zofran and Reglan), and gastrointestinal prophylaxis with Protonix and Carafate. Despite counseling at length regarding the risks, including worsening infection, progression of sepsis, potential for organ dysfunction, and the need for continued monitoring and treatment, the patient elected to leave the hospital against medical advice. She was alert, oriented, and demonstrated decision- making capacity. The risks, benefits, and alternatives were thoroughly discussed for more than 27 minutes, and she verbalized understanding of the potential consequences. She remained full code.Despite f explaining patient left AMA. Patient was encouraged to return ER if symptoms persist or worsen. Condition at Discharge: Undetermined Final Diagnosis/Problems List Sepsis likely due to below Possible acute gastroenteritis Acute gastritis Elevated lactic acid Hypokalemia Discharge Disposition: AMA Discharge Instruct/Medications Scheduled Pantoprazole Sodium Sesquihydr (Protonix), 40 MG PO DAILY Vit W/ Ferrous Fumara (Pnv Plus Multivi), 1 TAB PO DAILY Scheduled PRN Docusate Sodium (Docusate Sodium), 100 MG PO HS PRN Ibuprofen Micronized (Motrin Tablet), 600 MG PO Q6HP PRN Discharge Statement: "Patient was advised to return to the ER or call 911 if any headaches, dizziness, shortness of breath, chest pain, abdominal pain, bleeding, fevers, or worsening of medical condition. Patient was counseled about treatment plan, medications, possible side effects, patientverbalized understanding. All questions were answered to the best of my ability. This discharge took greater then 30 minutes in planning, reviewing documentation, counseling the patient, and discussing with other team members." ASSESSMENT ASSESSMENT Assessment Visit Coding STANDARD RES Billing Provider: JEIMY SCHMIDT MD Date of Service if different f: Nov 09, 2025 Common Visit Codes: 54615-ECO/OBS SAME DATE (HIGH) MANUEL VALDEZ RESIDENT Nov 09, 2025 16:25 JEIMY SCHMIDT MD Nov 09, 2025 23:54
[2025-11-09 20:49] LABS: Amphetamine Screen, Urine Neg (NEGATIVE); Barbiturate Scree,Urine Neg (NEGATIVE); Benzodiazephine Screen, Urine Neg (NEGATIVE); Cannabinoid Screen, Urine Pos (NEGATIVE); Cocaine Screen, Urine Neg (NEGATIVE); Opiate Scree,Urine Neg (NEGATIVE); Phencyclidine Screen, Urine Neg (NEGATIVE)
[2025-11-09] MEDS ORDERED: SODIUM CHLOR 0.9% PF (SALINE LOCK) 10ML VIAL/SYR IV SCH (22:00)
[2025-11-09] MEDS ORDERED: SUCRALFATE 1 GM/10 ML ORAL SUSP PO SCH (22:00)
[2025-11-10] MEDS ORDERED: ENOXAPARIN SOD 40 MG/0.4 ML SYRINGE SC SCH (10:00)
[2025-11-10] MEDS ORDERED: LACTULOSE 20Gm/30ML SOLN PO SCH (10:00)
== END 2025-11-09 15:45 | disposition left against medical advice (07) | DRG 872 ==
LOC: ER 09:57 → OVERFLOW 14:54
DX: A41.9 Sepsis, unspecified organism (principal); E87.20 Acidosis, unspecified; N39.0 Urinary tract infection, site not specified; K52.9 Noninfective gastroenteritis and colitis, unspecified; K29.00 Acute gastritis without bleeding; E87.6 Hypokalemia; Z53.29 Procedure and treatment not carried out because of patient's decision for other reasons
CPT/HCPCS: 36415; 74176; 80048; 80076; 80307; 81001; 81025; 83605; 83735; 84443; 85025; 85610; 85730; 86141; 86850; 86900; 86901; 87040; 96361; 96365; 96375; G0378; J2405; J3490

== ENCOUNTER 2025-11-10 08:26 | Inpatient (IN) | payer BC ==
[~2025-11-10] VITALS: Ht 152.4 cm; Wt 79.6 kg
--- NOTE | 2025-11-10 08:45 | ED.PDOC ---
GI ASSESSMENT HPI Comments 30 y/o F, with PMHx of gastritis and UTI presents to the ED for CC of abdominal pain. Patient states, she has been experiencing reoccurring diffuse abdominal pain [id number] which has since, not resolved. Patient relays, she was seen at [facility] ED yesterday (11/09/25) for SS and has not experienced any relief. Patient was admitted to [facility] for a further evaluation however, patient ultimately left AMA. Patient denies chills, fever, constipation, or diarrhea. No other associated symptoms, modifiers, recent injuries or sick contacts are present at this time. Chief Complaint: Abdominal Pain Time Seen by MD: 08:45 Reviewed Notes: Nurses Notes, Medications Allergies: Coded Allergies: NO KNOWN ALLERGIES (Unverified , 02/17/24) Home Meds Active Scripts Docusate Sodium (Docusate Sodium) 100 Mg Cap, 100 MG PO HS PRN for 30 Days, #30 CAP 2 Refills Prov:CJJULIUSMAHSA [facility] 05/26/24 Ibuprofen Micronized (MOTRIN TABLET) 600 Mg Tb, 600 MG PO Q6HP PRN for 20 Days, #80 TAB Prov:DEAN CORONA [facility] 05/26/24 Vit W/ Ferrous Fumara (PNV PLUS MULTIVI) Plus Tab, 1 TAB PO DAILY for 90 Days, #90 TAB 3 Refills Prov:DEAN CORONA [facility] 05/26/24 Pantoprazole Sodium Sesquihydr (Protonix) 40 Mg Tab, 40 MG PO DAILY, #30 TAB 3 Refills Prov:BRODIEDEAN WALLACE [facility] 02/17/24 Information Source: Patient Mode of Arrival: Ambulatory Timing: Days Duration: Since onset Prehospital treatment: None Vomitus: Watery Stool: Normal Severity: Moderate Recent: None Recent Hx of: None Pain Location: Diffuse Associated sign and symptoms: Nausea, Vomiting, Abdominal Pain Past Medical History PAST MEDICAL HISTORY: Denies Surgical History: Denies all surgeries DELIVERER OUTSIDE History: No Pertinent DELIVERER OUTSIDE History Family History Family History: Reviewed,noncontributory to illness, Unknown Social History Smoker: Non-Smoker Alcohol: Denies ETOH Use Drugs: Denies Drug Use Lives In: Home Constitutional: denies: chills, diaphoresis, fatigue, fever, malaise, sweats, weakness, others EENTM: denies: blurred vision, double vision, ear bleeding, ear discharge, ear drainage, ear pain, ear ringing, eye pain, eye redness, hearing loss, mouth pain, mouth swelling, nasal discharge, nose bleeding, nose congestion, nose pain, photophobia, tearing, throat pain, throat swelling, voice changes, others Respiratory: denies: cough, hemoptysis, orthopnea, SOB at rest, shortness of breath, SOB with excertion, stridor, wheezing, others Cardiovascular: denies: chest pain, dizzy spells, diaphoresis, Dyspnea on exertion, edema, irregular heart beat, left arm pain, lightheadedness, palpitations, PND, syncope, others Gastrointestinal: reports: abdominal pain, nausea, vomiting; denies: abdomen distended, blood streaked bowels, constipated, diarrhea, dysphagia, difficulty swallowing, hematemesis, melena, poor appetite, poor fluid intake, rectal blee ding, rectal pain, others Genitourinary: denies: abnormal vagina bleeding, burning, dyspareunia, dysuria, flank pain, frequency, hematuria, incontinence, pain, , vagina discharge, urgency, others Neurological: denies: dizziness, fainting, headache, left sided numbness, left sided weakness, numbness, paresthesia, pre-existing deficit, right sided numbness, right sided weakness, seizure, speech problems, tingling, tremors, weakness, others Musculoskeletal: denies: back pain, gout, joint pain, joint swelling, muscle pain, muscle stiffness, neck pain, others Integumetry: denies: bruises, change in color, change in hair/nails, dryness, laceration, lesions, lumps, rash, wounds, others Allergic/Immunocompromised: denies: Difficulty Healing, Frequent Infections, Hives, Itching, others Hematologic/Lymphatic: denies: anemia, blood clots, easy bleeding, easy bruising, swollen glands, others Endocrine: denies: excessive hunger, excessive sweating, excessive thirst, excessive urination, flushing, intolerance to cold, intolerance to heat, unexplained weight gain, unexplained weight loss, others Psychiatric: denies: anxiety, bipolar disorder, depression, hopeless, panic disorder, schizophrenia, sleepless, suicidal, others All Other Systems: Reviewed and Negative Physical Exam General Appearance: Moderate Distress HEENT: Normal ENT Inspection, Pharynx Normal, TMs Normal Neck: Full Range of Motion, Non-Tender, Normal, Normal Inspection Respiratory: Chest Non-Tender, Lungs Clear, No Accessory Muscle Use, No Respiratory Distress, Normal Breath Sounds Cardiovascular: No Edema, No JVD, No Murmur, No Gallop, Normal Peripheral Pulses, Regular Rate/Rhythm Breast Exam: Deferred Gastrointestinal: Diffuse, No Organomegaly, No Pulsatile Mass, Normal Bowel Sounds, Soft Genitalia: Deferred Pelvic: Deferred Rectal: Deferred Extremities: No calf tenderness, Normal capillary refill, Normal inspection, Normal range of motion, Non-tender, No pedal edema Musculoskeletal : Apperance: Normal 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 Was a procedure done?: No GI differential Dx Differential Diagnosis: Constipation, Diverticular disease, Esophagitis, Gastritis/PUD, Gastroenteritis, UTI, Bacterial, Viral X-Ray, Labs, Meds, VS Vital Signs Date Time Temp Pulse Resp B/P (MAP) Pulse Ox O2 Delivery O2 Flow Rate FiO2 11/10/25 09:24 98.4 6 16 103/61 (75) 98 98.4 11/10/25 08:28 98.3 65 18 111/85 96 98.3 Lab Test 11/10/25 10:05 11/10/25 08:36 Range/Units Lactic Acid Level 1.4 0.4-2.0 mmol/L White Blood Count 12.0 H 4.4-10.8 10^3/uL Red Blood Count 5.31 H 4.0-5.20 10^6/uL Hemoglobin 16.2 12.2-16.2 g/dL Hematocrit 46.3 H 36.0-46.0 % Mean Corpuscular Volume 87.2 80.0-100.0 fL Mean Corpuscular Hemoglobin 30.4 28.0-32.0 pg Mean Corpuscular Hemoglobin Concent 34.9 32.0-36.0 g/dL Red Cell Distribution Width 12.5 11.8-14.3 % Platelet Count 317 140-450 10^3/uL Mean Platelet Volume 7.6 6.9-10.8 fL Neutrophils (%) (Auto) 66.0 37.0-80.0 % Lymphocytes (%) (Auto) 23.5 10.0-50.0 % Monocytes (%) (Auto) 10.0 0.0-12.0 % Eosinophils (%) (Auto) 0.1 0.0-7.0 % Basophils (%) (Auto) 0.4 0.0-2.0 % Neutrophils # (Auto) 7.9 1.6-8.6 10 ^3/uL Lymphocytes # (Auto) 2.8 0.4-5.4 10 ^3/uL Monocytes # (Auto) 1.2 0-1.3 10 ^3/uL Eosinophils # (Auto) 0 0-0.8 10 ^3/uL Basophils # (Auto) 0 0-0.2 10 ^3/uL Nucleated Red Blood Cells 0.1 % Sodium Level 137 136-145 mmol/L Potassium Level 3.4 L 3.5-5.1 mmol/L Chloride Level 99 98-107 mmol/L Carbon Dioxide Level 26 20-31 mmol/L Anion Gap 12 5-15 Blood Urea Nitrogen 10 9-23 mg/dL Creatinine 0.80 0.550-1.02 mg/dL Glomerular Filtration Rate Calc 103 >90 mL/min BUN/Creatinine Ratio 12.5 10.0-20.0 Serum Glucose 116 H 74-106 mg/dL Calcium Level 9.3 8.7-10.4 mg/dL Total Bilirubin 3.6 H 0.2-1.0 mg/dL Current Medications Medications (Trade) Dose Ordered Sig/Sudhir Route Start Time Stop Time Status Last Admin Hydromorphone HCl (Dilaudid Injection) 1 mg ONCE ONCE IV 11/10/25 09:30 11/10/25 09:31 DC 11/10/25 11:06 Ondansetron HCl (Zofran) 4 mg ONCE ONCE IV 11/10/25 09:30 11/10/25 09:31 DC 11/10/25 11:03 Sodium Chloride 1,000 ml @ 1,000 mls/hr Q1H ONCE IV 11/10/25 09:30 11/10/25 10:29 DC 11/10/25 09:30 Ceftriaxone Sodium 50 ml @ 100 mls/hr ONCE ONCE IV 11/10/25 09:30 11/10/25 09:59 DC 11/10/25 11:03 Metronidazole 100 ml @ 100 mls/hr ONCE ONCE IV 11/10/25 09:30 11/10/25 10:29 DC 11/10/25 11:04 Patient alert. Complaining of abdominal pain. Vitals stable. Answering questions. WBC elevated. Possible sepsis. Establish intravenous access. Was given fluids. Was given Rocephin. Was given Flagyl. Explained to the patient. Continue monitoring. [address] [address] Ph: [phone] DIAGNOSTIC IMAGING Diagnostic Imaging Report : [id number] Signed PATIENT: LEYLA SIMONCCT: [id number] UNIT: [id number] : 1995 LOC: ER ROOM / BED: / AGE / SEX: 30 / F ADM STATUS: REG ER SERVICE 0 ORDERING PHYSICIAN: PANCHO BARRERA MD PROCEDURE(s): PELUS - PELVIC REASON: torsion ORDER NUMBER(s): [id number], ACCESSION NUMBER(s): [id number] CLINICAL HISTORY: torsion TECHNIQUE: Ultrasound examination of the female pelvis was performed transabdo minally. Transvaginal ultrasound was performed to more optimally assess the endometrial cavity. COMPARISON: None FINDINGS: TRANSABDOMINAL IMAGING: The bladder is not well distended and therefore not well evaluated. Endovaginal imaging was thereafter performed for better depiction of the anatomy. ENDOVAGINAL IMAGING: The uterus measures 7.3 x 4.8 by 3.8 CM. The myometrial echotexture is homogenous. No focal myometrial abnormality is seen. The endometrial lining is normal in thickness, measuring 7 mm. The right ovary measures 2.6 x 2.0 x 1.7 cm. The left ovary is not seen, likely obscured by overlying bowel gas. Normal color doppler flow and vascular waveforms. There is no free fluid. IMPRESSION: No significant sonographic abnormality of the imaged pelvis. Nonvisualization of the left ovary. ATED BY: CHET ADAM MD DICTATED DATE/TIME: 11/10/25 1016 SIGNED BY: CHET ADAM MD SIGNED DATE/TIME: 11/10/25 1016 CC: [place] [id number] Ph: [phone] DIAGNOSTIC IMAGING Diagnostic Imaging Report : [id number] Signed PATIENT: LEYLA SIMONCCT: [id number] UNIT: [id number] : 1995 LOC: ER ROOM / BED: / AGE / SEX: 30 / F ADM STATUS: REG ER SERVICE [id number] ORDERING PHYSICIAN: PANCHO BARRERA MD PROCEDURE(s): GBUS - GALLBLADDER REASON: pain ORDER NUMBER(s): [id number], ACCESSION NUMBER(s): [id number] CLINICAL HISTORY: pain TECHNIQUE: Transabdominal sonogram was performed of the right upper quadrant. COMPARISON: None FINDINGS: The liver is normal in echogenicity. There is no focal parenchymal abnormality. No intrahepatic biliary ductal dilatation is present. The liver measures 16 cm. The gallbladder contains a large amount of sludge with no evidence for stones or wall thickening. The sonographic Swenson's sign is reported to be absent. The common bile duct is normal in caliber, measuring 4 mm. The visualized pancreas is grossly unremarkable. The right kidney is normal in echogenicity and measures 9.9 cm in length. There is no evidence for hydronephrosis or calculi. IMPRESSION: Large amount of gallbladder sludge. ATED BY: CHET ADAM MD DICTATED DATE/TIME: 11/10/25 1014 SIGNED BY: CHET ADAM MD SIGNED DATE/TIME: 11/10/25 1014 CC: Time of 1ST Reevaluation: 09:15 Reevaluation 1ST: Unchanged Patient Education/Counseling: Diagnosis, Treatment Family Education/Counseling: No Family Present SEPSIS Sepsis Screen Date sepsis recognized/suspect: Nov 10, 2025 Time Sepsis recognized/suspect: 829 Recent Procedure: No On Antibiotic Therapy: No Respiratory Rate >20: No Heart Rate >90: No Temp<36 C (96.8 F) or >38.3 C: No SBP <90 or MAP <65 mmHG: No New Acute Mental Status Change: No Is the patient on CPAP, BIPAP,: No Physician Orders Urinalysis (11/10/25 08:30) Pelvic (11/10/25 09:21) Sodium Chloride 0.9% (11/10/25 09:30) Blood Culture (11/10/25 09:21) Gallbladder (11/10/25 09:36) Transvaginal Us Non Ob (11/10/25 ) Vital Signs Date Time Temp Pulse Resp B/P (MAP) Pulse Ox O2 Delivery O2 Flow Rate FiO2 11/10/25 09:24 98.4 6 16 103/61 (75) 98 98.4 11/10/25 08:28 98.3 65 18 111/85 96 98.3 Laboratory Tests Test 11/10/25 08:36 11/10/25 10:05 White Blood Count 12.0 10^3/uL (4.4-10.8) H Lactic Acid Level 1.4 mmol/L (0.4-2.0) Medications Medications Dose Ordered Sig/Sudhir Route Start Time Stop Time Status Last Admin Dose Admin Ceftriaxone Sodium 50 ml @ 100 mls/hr ONCE ONCE IV 11/10/25 09:30 11/10/25 09:59 DC 11/10/25 11:03 Hydromorphone HCl 1 mg ONCE ONCE IV 11/10/25 09:30 11/10/25 09:31 DC 11/10/25 11:06 Metronidazole 100 ml @ 100 mls/hr ONCE ONCE IV 11/10/25 09:30 11/10/25 10:29 DC 11/10/25 11:04 Ondansetron HCl 4 mg ONCE ONCE IV 11/10/25 09:30 11/10/25 09:31 DC 11/10/25 11:03 Sodium Chloride 1,000 ml @ 1,000 mls/hr Q1H ONCE IV 11/10/25 09:30 11/10/25 10:29 DC 11/10/25 09:30 Departure 1 Departure Time of Disposition: : Impression: Primary Impression: Sepsis due to urinary tract infection Additional Impression: Acute abdominal pain Disposition: ADMITTED INPATIENT Admit to: Med Surg Condition: Guarded Critical Care Note Critical Care Time?: No Stability Stability form required: No Heart Score Heart Score: Heart Score Response (Comments) Value History N/A 0 EKG N/A 0 Age N/A 0 Risk Factors N/A 0 Troponin N/A 0 Total 0 I personally scribed for PANCHO BARRERA MD ([email or web address]) on 11/10/25 at 08:45. Electronically submitted by Yesy Andrew ([email or web address]). I personally scribed for PANCHO BARRERA MD ([email or web address]) on 11/10/25 at 09:19. Electronically submitted by Yesy Andrew ([email or web address]). I personally scribed for PANCHO BARRERA MD ([email or web address]) on 11/10/25 at 11:37. Electronically submitted by Yesy Andrew ([email or web address]). I personally scribed for PANCHO BARRERA MD ([email or web address]) on 11/10/25 at 11:37. Electronically submitted by Yesy Andrew [email or web address]). PANCHO BARRERA MD Nov 10, 2025 08:45
[2025-11-10 08:47] LABS: Hematocrit 46.3 % (36.0-46.0); Hemoglobin 16.2 g/dL (12.2-16.2); Mean Corpuscular Hemoglobin 30.4 pg (28.0-32.0); Mean Corpuscular Volume 87.2 fL (80.0-100.0); Nucleated Red Blood Cells % 0.1 %
[2025-11-10 08:59] LABS: Chloride 99 mmol/L (98-107); Sodium 137 mmol/L (136-145)
[2025-11-10 09:00] LABS: Anion Gap 12 (5-15); Calcium 9.3 mg/dL (8.7-10.4); Carbon Dioxide 26 mmol/L (20-31)
[2025-11-10 09:01] LABS: Potassium 3.4 mmol/L (3.5-5.1)
[2025-11-10 09:05] LABS: BUN/Creatinine Ratio 12.5 (10.0-20.0); Blood Urea Nitrogen 10 mg/dL (9-23)
[2025-11-10 09:06] LABS: Glucose 116 mg/dL (74-106)
[2025-11-10] MEDS: SODIUM CHLORIDE 0.9% 1,000 ML IV ONE ×2 (09:30→12:03)
[2025-11-10] MEDS: SODIUM CHLORIDE 0.9% 1,000 ML IV SCH (10:15)
[2025-11-10] MEDS ORDERED: HYDROcodone-ACET 5/325MG TAB PO PRN (10:15)
[2025-11-10] MEDS ORDERED: ACETAMINOPHEN 325 MG TAB PO PRN (10:15)
--- NOTE | 2025-11-10 10:17 | DVH ---
CLINICAL HISTORY: pain TECHNIQUE: Transabdominal sonogram was performed of the right upper quadrant. COMPARISON: None FINDINGS: The liver is normal in echogenicity. There is no focal parenchymal abnormality. No intrahepatic biliary ductal dilatation is present. The liver measures 16 cm. The gallbladder contains a large amount of sludge with no evidence for stones or wall thickening. The sonographic Swenson's sign is reported to be absent. The common bile duct is normal in caliber, measuring 4 mm. The visualized pancreas is grossly unremarkable. The right kidney is normal in echogenicity and measures 9.9 cm in length. There is no evidence for hydronephrosis or calculi. IMPRESSION: Large amount of gallbladder sludge.
--- NOTE | 2025-11-10 10:18 | DVH ---
CLINICAL HISTORY: torsion TECHNIQUE: Ultrasound examination of the female pelvis was performed transabdominally. Transvaginal ultrasound was performed to more optimally assess the endometrial cavity. COMPARISON: None FINDINGS: TRANSABDOMINAL IMAGING: The bladder is not well distended and therefore not well evaluated. Endovaginal imaging was thereafter performed for better depiction of the anatomy. ENDOVAGINAL IMAGING: The uterus measures 7.3 x 4.8 by 3.8 CM. The myometrial echotexture is homogenous. No focal myometrial abnormality is seen. The endometrial lining is normal in thickness, measuring 7 mm. The right ovary measures 2.6 x 2.0 x 1.7 cm. The left ovary is not seen, likely obscured by overlying bowel gas. Normal color doppler flow and vascular waveforms. There is no free fluid. IMPRESSION: No significant sonographic abnormality of the imaged pelvis. Nonvisualization of the left ovary.
--- NOTE | 2025-11-10 10:26 | DVHHPRES ---
History of Present Illness Resident Creating Document: MANUEL VALDEZ RESIDENT History of Present Illness Ms. Villanueva returns with ongoing nausea and vomiting that persisted after her previous visit yesterday. She reports that the anti-nausea injection she received during her last visit provided temporary relief, but once the medicati on's effects wore off, her symptoms returned. She experienced vomiting throughout the night and has been unable to tolerate any food or water. She also has a history of gastritis but is not currently taking any medications for it, though she was previously on a proton pump inhibitor for stomach acid which did not provide significant relief. She reports having difficulty with vomiting and being unable to keep food down, stating she cannot keep up with anything when asked about her ability to eat. PMH: None PSH: None Family history: None Social History - Substance Use: Alcohol use And marijuana occassionally - Living Situation: Lives with family Medications and Supplements - Unknown supplement for gut health Review of Systems Gastrointestinal: Positive for vomiting, negative for ability to keep food down. Musculoskeletal: Positive for pain that is initially difficult but gradually improves. Psychiatric: Positive for stress. Review of Systems Allergies: Coded Allergies: NO KNOWN ALLERGIES (Unverified , 02/17/24) Medications Current Medications Medications Dose Ordered Sig/Sudhir Route Start Time Stop Time Status Last Admin Dose Admin Sodium Chloride 10 ml Q8HR IV 11/10/25 14:00 Sodium Chloride 1,000 ml @ 120 mls/hr Q8H20M IV 11/10/25 10:15 Acetaminophen/ Hydrocodone Bitart 1 tab Q4HP PRN PO 11/10/25 10:15 Ondansetron HCl 4 mg Q4HP PRN IV 11/10/25 10:15 Enoxaparin Sodium 40 mg DAILY SC 11/11/25 10:00 Acetaminophen 650 mg Q6HP PRN PO 11/10/25 10:15 Metoclopramide HCl 5 mg Q6HPRN PRN IV 11/10/25 10:15 Pantoprazole Sodium 40 mg DAILY IV 11/11/25 10:00 Sucralfate 1 gm BID@0600,2200 PO 11/10/25 22:00 Ceftriaxone Sodium 50 ml @ 100 mls/hr DAILY@09 IV 11/11/25 09:00 Metronidazole 100 ml @ 100 mls/hr Q8HR IV 11/10/25 14:00 Exam Vital Signs Vital Signs Date Time Temp Pulse Resp B/P (MAP) Pulse Ox O2 Delivery O2 Flow Rate FiO2 11/10/25 09:24 98.4 6 16 103/61 (75) 98 98.4 Exam Pt is lying on bed General Appearance: Alert, Oriented X3, Cooperative, severe distress HEENT: Atraumatic, Mucous membranes moist/pink Respiratory: Clear to auscultation, Normal air movement, No added sounds Cardiovascular: Regular rate, Normal S1, Normal S2, No murmurs Abdominal: generalized tenderness Extremities: No edema, Normal pulses, No tenderness/swelling Skin: No Significant rash, except past surgical scars Neuro: Normal speech, sensorimotor deficits none Psych/Mental Status: Mental status NL, Mood NL Nurse was there as glass engraver during examination Labs/Xrays Labs Test 11/10/25 10:05 11/10/25 08:36 Range/Units White Blood Count 12.0 H 4.4-10.8 10^3/uL Red Blood Count 5.31 H 4.0-5.20 10^6/uL Hemoglobin 16.2 12.2-16.2 g/dL Hematocrit 46.3 H 36.0-46.0 % Mean Corpuscular Volume 87.2 80.0-100.0 fL Mean Corpuscular Hemoglobin 30.4 28.0-32.0 pg Mean Corpuscular Hemoglobin Concent 34.9 32.0-36.0 g/dL Red Cell Distribution Width 12.5 11.8-14.3 % Platelet Count 317 140-450 10^3/uL Mean Platelet Volume 7.6 6.9-10.8 fL Neutrophils (%) (Auto) 66.0 37.0-80.0 % Lymphocytes (%) (Auto) 23.5 10.0-50.0 % Monocytes (%) (Auto) 10.0 0.0-12.0 % Eosinophils (%) (Auto) 0.1 0.0-7.0 % Basophils (%) (Auto) 0.4 0.0-2.0 % Neutrophils # (Auto) 7.9 1.6-8.6 10 ^3/uL Lymphocytes # (Auto) 2.8 0.4-5.4 10 ^3/uL Monocytes # (Auto) 1.2 0-1.3 10 ^3/uL Eosinophils # (Auto) 0 0-0.8 10 ^3/uL Basophils # (Auto) 0 0-0.2 10 ^3/uL Nucleated Red Blood Cells 0.1 % Sodium Level 137 136-145 mmol/L Potassium Level 3.4 L 3.5-5.1 mmol/L Chloride Level 99 98-107 mmol/L Carbon Dioxide Level 26 20-31 mmol/L Anion Gap 12 5-15 Blood Urea Nitrogen 10 9-23 mg/dL Creatinine 0.80 0.550-1.02 mg/dL Glomerular Filtration Rate Calc 103 >90 mL/min BUN/Creatinine Ratio 12.5 10.0-20.0 Serum Glucose 116 H 74-106 mg/dL Calcium Level 9.3 8.7-10.4 mg/dL SEPSIS Sepsis Screen Date sepsis recognized/suspect: Nov 10, 2025 Time Sepsis recognized/suspect: 829 Recent Procedure: No On Antibiotic Therapy: No Respiratory Rate >20: No Heart Rate >90: No Temp<36 C (96.8 F) or >38.3 C: No SBP <90 or MAP <65 mmHG: No New Acute Mental Status Change: No Is the patient on CPAP, BIPAP,: No Physician Orders Urinalysis (11/10/25 08:30) Pelvic (11/10/25 09:21) Sodium Chloride 0.9% (11/10/25 09:30) Sodium Chloride 0.9% (11/10/25 09:30) Blood Culture (11/10/25 09:21) Lactic Acid W/ Reflex Order (11/10/25 09:21) Metronidazole 500mg/100ml (Flagyl 500mg/ (11/10/25 09:30) Bilirubin, Total (11/10/25 09:36) Gallbladder (11/10/25 09:36) Transvaginal Us Non Ob (11/10/25 ) Admit (11/10/25 10:12) Allergies (11/10/25 10:12) Code Status (11/10/25 10:12) Sodium Chloride Lock (Saline Lock Ns) (11/10/25 14:00) Sodium Chloride 0.9% (11/10/25 10:15) Hydrocodone-Acet 5/325mg Tab ([place]incoln 5/32 (11/10/25 10:15) Ondansetron Hcl (Zofran) (11/10/25 10:15) Enoxaparin Sodium (Lovenox) (11/11/25 10:00) Complete Blood Count (11/11/25 04:00) Comprehensive Metabolic Panel (11/11/25 04:00) Npo (Nothing By Mouth) Diet (11/10/25 Lunch) Condition: Fair (11/10/25 10:12) Acetaminophen Tablet (Tylenol Tablet) (11/10/25 10:15) Metoclopramide Injection (Reglan Injecti (11/10/25 10:15) Pantoprazole (Protonix) (11/11/25 10:00) Sucralfate Susp (Carafate Susp) (11/10/25 22:00) Ceftriaxone 1gm/50ml (Rocephin) (11/11/25 09:00) Metronidazole 500mg/100ml (Flagyl 500mg/ (11/10/25 14:00) Vital Signs Date Time Temp Pulse Resp B/P (MAP) Pulse Ox O2 Delivery O2 Flow Rate FiO2 11/10/25 09:24 98.4 6 16 103/61 (75) 98 98.4 11/10/25 08:28 98.3 65 18 111/85 96 98.3 Laboratory Tests Test 11/10/25 08:36 11/10/25 10:05 White Blood Count 12.0 10^3/uL (4.4-10.8) H Lactic Acid Level Pending Assessment/Plan Assessment/Plan Sepsis likely due to below Possible acute gastroenteritis Acute gastritis Dehydration Plan: - symptomatic management with the Zofran and Reglan - Protonix and Carafate - IV antibiotics Flagyl on Rocephin - Provide IV fluids - correcting electrolyte abnormalities - pancultures - CT showed no acute changes - consider GI consult if needed - ordered GB ultrasound, Large amount of gallbladder sludge. GI PPX: Protonix VTE ppx: Lovenox Diet: NPO Goals of care addressed with the patient for more than 27 minutes: Full code status Case discussed with Dr. Quintana , patient and nurse Plan discussed with: Patient My Orders Orders - MANUEL VALDEZ RESIDENT Procedure Category Date Status Time Admit ADMIT 11/10/25 Transmitted 10:12 Allergies LARA 11/10/25 In Process 10:12 Code Status CODE 11/10/25 Transmitted 10:12 Sodium Chloride Lock PHA 11/10/25 In Process (Saline Lock Ns) 14:00 Sodium Chloride 0.9% PHA 11/10/25 In Process 10:15 Hydrocodone-Acet PHA 11/10/25 In Process 5/325mg Tab (Lincoln 10:15 Ondansetron Hcl PHA 11/10/25 In Process (Zofran) 10:15 Enoxaparin Sodium PHA 11/11/25 In Process (Lovenox) 10:00 Complete Blood Count LAB 11/11/25 Verified 04:00 Comprehensive LAB 11/11/25 Verified Metabolic Panel 04:00 Npo (Nothing By DIET 11/10/25 Transmitted Mouth) Diet Lunch Condition: Fair LARA 11/10/25 In Process 10:12 Acetaminophen Tablet PHA 11/10/25 In Process (Tylenol Tablet) 10:15 Metoclopramide PHA 11/10/25 In Process Injection (Reglan 10:15 Pantoprazole PHA 11/11/25 In Process (Protonix) 10:00 Sucralfate Susp PHA 11/10/25 In Process (Carafate Susp) 22:00 Ceftriaxone 1gm/50ml PHA 11/11/25 In Process (Rocephin) 09:00 Metronidazole PHA 11/10/25 In Process 500mg/100ml (Flagyl 14:00 Visit Coding STANDARD RES Billing Provider: JEIMY QUINTANA MD Date of Service if different f: Nov 10, 2025 Common Visit Codes: 89891-EXOMLLS INP/OBS CARE (HIGH) Secondary Visit Codes: 36539-[id number] CARE PLAN 30 MINUTES MANUEL VALDEZ RESIDENT Nov 10, 2025 10:26
[2025-11-10 10:30] VITALS: PULSE 62; RESP 15; O2SAT 100
[2025-11-10] MEDS: ONDANSETRON HCL 4 MG/2 ML VIAL IV ONE (11:03)
[2025-11-10] MEDS: PANTOPRAZOLE 40 MG/10 ML VIAL INJ IV ONE (11:03)
[2025-11-10] MEDS: HYDROmorphone HCL 2 MG/ML VL/or syr IV ONE (11:06)
[2025-11-10 12:27] VITALS: PULSE 55; RESP 20; O2SAT 100
[2025-11-10 12:28] VITALS: BP 105/71; PULSE 55; RESP 20; TEMP 97.9; O2SAT 100
[2025-11-10 13:35] LABS: Urine Protein, UAD TRACE (Negative)
[2025-11-10] MEDS: SODIUM CHLOR 0.9% PF (SALINE LOCK) 10ML VIAL/SYR IV SCH (14:07)
[2025-11-10] MEDS: ONDANSETRON HCL 4 MG/2 ML VIAL IV PRN (14:11)
[2025-11-10] MEDS: MORPHINE SULFATE 4 MG/ML SYR/VIAL IV PRN (14:30)
[2025-11-10] MEDS: DICYCLOMINE HCL (10MG/ML) 2 ML AMPULE IM ONE (14:32)
[2025-11-10 16:23] VITALS: BP 120/82; PULSE 51; RESP 18; TEMP 99.1; O2SAT 100
[2025-11-10 20:00] VITALS: PULSE 55; RESP 17; O2SAT 96
[2025-11-10 21:00] VITALS: BP 126/86; PULSE 55; RESP 17; TEMP 97.9; O2SAT 96
[2025-11-10] MEDS: SUCRALFATE 1 GM/10 ML ORAL SUSP PO SCH (21:20)
[2025-11-11] VITALS (8 sets, daily range): BP systolic 107–140; BP diastolic 60–87; PULSE 50–64; RESP 17–19; TEMP 97.7–98.7; O2SAT 96–99
[2025-11-11] MEDS: METOCLOPRAMIDE HCL 5MG/ml INJ 2ml VIAL IV PRN (03:39)
[2025-11-11 07:41] LABS: Alkaline Phosphatase 62 U/L (46-116); Anion Gap 11 (5-15); BUN/Creatinine Ratio 9.2 (10.0-20.0); Carbon Dioxide 23 mmol/L (20-31); Chloride 104 mmol/L (98-107); Glucose 105 mg/dL (74-106); Hematocrit 40.1 % (36.0-46.0); Hemoglobin 14.0 g/dL (12.2-16.2); Mean Corpuscular Hemoglobin 31.0 pg (28.0-32.0); Mean Corpuscular Volume 88.5 fL (80.0-100.0); Nucleated Red Blood Cells % 0.3 %; Sodium 138 mmol/L (136-145); Total Protein 6.4 g/dL (5.7-8.2)
[2025-11-11 07:42] LABS: Alanine Aminotransferase 166 U/L (7-40); Blood Urea Nitrogen 6 mg/dL (9-23); Potassium 3.0 mmol/L (3.5-5.1)
[2025-11-11 07:43] LABS: Bilirubin, Total 3.4 mg/dL (0.2-1.0); Calcium 8.2 mg/dL (8.7-10.4)
[2025-11-11 07:46] LABS: Albumin 4.0 g/dL (3.2-4.8)
[2025-11-11 08:36] LABS: INR 1.22 (0.9-1.15); Partial Thromboplastin Time 25.7 SEC (24.5-34.5); Prothrombin Time 12.7 sec (9.3-11.8)
[2025-11-11 08:47] LABS: Magnesium 2.2 mg/dL (1.6-2.6)
[2025-11-11] MEDS: PANTOPRAZOLE 40 MG/10 ML VIAL INJ IV SCH (09:05)
[2025-11-11] MEDS: ENOXAPARIN SOD 40 MG/0.4 ML SYRINGE SC SCH (09:06)
--- NOTE | 2025-11-11 09:54 | DVH ---
RENAL ULTRASOUND CLINICAL HISTORY: Pyelonephritis TECHNIQUE: Multiple grayscale ultrasound images were obtained through the kidneys and urinary bladder. COMPARISON: None FINDINGS: Right kidney: Measures 12.3 x 3.8 x 4.7 cm. No hydronephrosis. Left kidney: Measures 12.8 x 4.4 x 5.1 cm. Mild hydronephrosis. Urinary bladder: Left ureteral jet is not visualized. The right ureteral jet is seen. Mild urinary bladder wall thickening. Prevoid volume is 61 mL IMPRESSION: 1. Mild left hydronephrosis. 2. Mild bladder wall thickening, nonspecific. Correlate with urinalysis if there is clinical concern for cystitis.
[2025-11-11 10:37] LABS: Hepatitis B Surface Antigen Negative (Negative)
--- NOTE | 2025-11-11 10:54 | DVHPNRES ---
Progress Note Date Seen: Nov 11, 2025 Resident Creating Document: GRICELDA PARKER RESIDENT Medical Necessity Reason Pt with a Central, PICC or Fol: No Subjective Review of Systems Patient is 30 years old female with a past medical history of gastritis came with a abdominal pain and nausea and vomiting. As per patient she has been having intractable abdominal pain, epigastric in region, constant, 10/10 abdominal pain, relieved with the eating for last couple of days. Pain was associated nausea and intractable vomiting, watery, nonbloody. Patient denied any fever, acute joint ratio swelling, chest pain no shortness a breath. Initial lab workup revealed leukocytosis WBC 12.0, hypokalemia with a potassium 3.4, transaminitis with a serum bilirubin 3.6, direct bilirubin 1.5, ALT 166, AST 131, urinalysis revealed UTI with leukocyte esterase 3+, WBC 17, bacteria few. Acute hepatitis panel negative. COVID and flu negative. UDS positive for cannabinoids and opiates. Serum alcohol< 3. Gallbladder ultrasound- Large amount of gallbladder sludge. Renal ultrasound left mild hydronephrosis, mild bladder wall thickening. PMH-gastritis PSH- none Allergy- NKDA Personal History/ Social History- occasional alcohol use and marijuana use. Lives with the family has been ROS Cardiovascular- deny acute chest pain or shortness of breath or cough or palpitation Respiratory denies cough or short of breath or wheezing Musculoskeletal-denies acute joint swelling or tenderness or redness Neurological- denies acute dysarthria, dysphagia, change in vision Psychiatry- denies depression or SI or HI Skin- denies acute rash or purpura Patient was seen today at bedside. Labs and chart reviewed UDS positive for cannabinoids and opiates. Patient reported pain is still there, Blood culture no growth so far Pending urine culture for UTI Consulted GI, recommended for HIDA scan and surgical consult MRCP revealed-No intra or extra hepatic biliary ductal dilatation. No MRI evidence of choledocholithiasis or cholecystitis. Patient was seen by surgeon Dr. Jacobson, recommended patient possibly passed stone given her elevated total bilirubin with a predominant direct component at 1.5. As per surgeon- we ill obtain labs in the morning, and possible surgery laparoscopic cholecystectomy versus laparoscopic cholecystectomy and intraoperative cholangiogram. We will discuss the options in the morning with the patient. Objective vital signs Vital Sign Date Time Temp Pulse Resp B/P (MAP) Pulse Ox O2 Delivery O2 Flow Rate FiO2 11/11/25 09:05 55 18 140/87 11/11/25 08:45 97.7 99 97.7 11/10/25 20:00 Room Air* 0 21 medications Current Medications Medications Dose Ordered Sig/Sudhir Route Start Time Stop Time Status Last Admin Dose Admin Sodium Chloride 10 ml Q8HR IV 11/10/25 14:00 11/11/25 09:05 10 ML Sodium Chloride 1,000 ml @ 120 mls/hr Q8H20M IV 11/10/25 10:15 11/11/25 10:13 120 MLS/HR Ondansetron HCl 4 mg Q4HP PRN IV 11/10/25 10:15 11/11/25 09:04 4 MG Enoxaparin Sodium 40 mg DAILY SC 11/11/25 10:00 11/11/25 09:06 40 MG Acetaminophen 650 mg Q6HP PRN PO 11/10/25 10:15 Metoclopramide HCl 5 mg Q6HPRN PRN IV 11/10/25 10:15 11/11/25 03:39 5 MG Pantoprazole Sodium 40 mg DAILY IV 11/11/25 10:00 11/11/25 09:05 40 MG Sucralfate 1 gm BID@0600,2200 PO 11/10/25 22:00 11/11/25 05:17 1 GM Ceftriaxone Sodium 50 ml @ 100 mls/hr DAILY@09 IV 11/11/25 09:00 11/11/25 09:05 100 MLS/HR Metronidazole 100 ml @ 100 mls/hr Q8HR IV 11/10/25 14:00 11/11/25 05:18 100 MLS/HR Morphine Sulfate 2 mg Q4HPRN PRN IV 11/10/25 14:30 11/11/25 09:05 2 MG Examination General examination- HEENT- PEERLA, no acute nasal discharge Cardiovascular- S1-S2 audible, rate and rhythm regular, no murmur Respiratory- CTAB, no wheeze or rhonchi Gastrointestinal- epigastric and supra pubic tenderness positive, , bowel sound+. Nondistended Musculoskeletal-no acute joint swelling or tenderness or redness Lower extremity- no leg edema Neurological- cranial nerves intact, no acute dysarthria or dysphagia Psychiatry- denies depression or SI or HI Skin- no acute rash or purpura laboratory and microbiology Laboratory Tests 11/11/25 05:34 Test 11/11/25 05:34 Range/Units Serum Glucose 105 74-106 mg/dL Microbiology Date/Time Source Procedure Growth Status 11/10/25 10:11 Blood Blood Culture - Preliminary NO GROWTH AFTER 24 HOURS OF INCUBATION. Resulted Problem List/Assessment/Plan Problem List/Assessment/Plan Assessment and plan-patient is a recurrent admission with a intractable abdominal pain and nausea and vomiting. UDS positive for cannabinoids and opiates. GI consult was done, recommended for HIDA scan and surgery consult. MRCP revealed-No intra or extra hepatic biliary ductal dilatation. No MRI evidence of choledocholithiasis or cholecystitis. As per surgeon Dr. Jacobson commented-e will obtain labs in the morning, and possible surgery laparoscopic cholecystectomy versus laparoscopic cholecystectomy and intraoperative cholangiogram. We will discuss the options in the morning with the patient. Pending blood culture and urine culture for suspected sepsis from UTI. On ceftriaxone and metronidazole and IV fluid. # sepsis likely due to acute complicated UTI # intractable abdominal pain with nausea and vomiting likely due to the above/gastritis/gastroenteritis/marijuana induced hyperemesis # acute gastroenteritis likely infectious etiology # suspected marijuana induced hyperemesis #Suspected Acute Calculus Cholecystitis -UDS positive for marijuana and appears -pending urine culture - blood culture no growth so far -continue IV fluid as prescribed Continue ceftriaxone and metronidazole as prescribed -continue pantoprazole and sucralfate as prescribed -patient is seen by Gastroenterology, recommended for HIDA scan and surgery consult -MRCP revealed-No intra or extra hepatic biliary ductal dilatation. No MRI evidence of choledocholithiasis or cholecystitis. -Patient was seen by surgeon Dr. Jacobson, recommended patient possibly passed stone given her elevated total bilirubin with a predominant direct component at 1.5. As per surgeon- we ill obtain labs in the morning, and possible surgery laparoscopic cholecystectomy versus laparoscopic cholecystectomy and intraoperative cholangiogram. We will discuss the options in the morning with the patient. -monitor vitals # transaminitis -ultrasound of the gallbladder revealed sludge in the gallbladder -pending HIDA scan and MRCP for further evaluation and care -gastroenterology on board -continue current conservative # possible PUD -continue pantoprazole and sucralfate -gastroenterology on board Goals of care, Code status full code ; discussed with >15 minutes PUD prophylaxis: Pantoprazole DVT prophylaxis: Lovenox Plan discussed with Dr. Silva , nursing staff, Total time spent on patient evaluation, chart review, assessment and plan, discussion discussion >35 minutes Plan discussed with: Patient, Spouse, Other (RN) My Orders My Orders Orders - GRICELDA PARKER Procedure Category Date Status Time Vitamin B12 LAB 11/11/25 In Process 07:36 Vitamin D, 25-Hydroxy LAB 11/11/25 In Process 07:36 Folate (Folic Acid) LAB 11/11/25 In Process 07:36 Urine Bacterial ARABELLA 11/11/25 Logged Culture 07:40 Drug Screen LAB 11/11/25 Logged 07:40 Electrocardigram EKG 11/11/25 Logged 07:41 Lipase LAB 11/11/25 In Process 07:42 Acute Hepatitis Panel LAB 11/11/25 In Process 07:43 Covid19 Antigen Chanel LAB 11/11/25 Logged Rapid Influenza A&B LAB 11/11/25 Logged 07:43 Kidney US 11/11/25 Resulted 08:47 Test, Urine LAB 11/11/25 Logged 08:48 Consult Care CONS 11/11/25 Transmitted Coordinator Mrcp Mri MRI 11/11/25 Logged 09:46 * Gi [facility] [employer] Attendant CONS 11/11/25 Transmitted 10:25 Npo (Nothing By DIET 11/11/25 Transmitted Mouth) Diet Lunch Visit Coding STANDARD RES Billing Provider: RONIT PHILLIPS MD Date of Service if different f: Nov 11, 2025 Common Visit Codes: [id number] INP/OBS CARE(HIGH) GRICELDA PARKER RESIDENT Nov 11, 2025 10:54
[2025-11-11 11:34] LABS: Hepatitis C Antibody Negative (Negative)
[2025-11-11 12:14] LABS: Opiate Scree,Urine Pos (NEGATIVE)
[2025-11-11 12:20] LABS: Amphetamine Screen, Urine Neg (NEGATIVE); Barbiturate Scree,Urine Neg (NEGATIVE); Benzodiazephine Screen, Urine Neg (NEGATIVE); Cocaine Screen, Urine Neg (NEGATIVE); Phencyclidine Screen, Urine Neg (NEGATIVE)
[2025-11-11 12:21] LABS: Cannabinoid Screen, Urine Pos (NEGATIVE)
--- NOTE | 2025-11-11 14:19 | DVHINCON2 ---
GI Consult Consult Note GI consult note Date of Consultation: 11/11/2025 Chief Complaint: Intractable nausea vomiting abdominal pain/gastritis Referring Physician: Dr. Arellano H&P: 30-year-old female admitted with complains of persistent nausea and vomiting for two days. Also complaining of epigastric pain which has been on and off for the past five years but has worsened since last Friday. Patient was diagnosed with gastritis in the past and treated with Protonix and Carafate. No EGD in past. Past Medical History: Denies Past Surgical History: Denies Social History: NO smoking, drinking ETOH Occasional marijuana use Family History: Noncontributory Review of Systems: Constitutional: no fever, chill, weight loss HEENT: no eye pain, no hearing loss, no oral lesion, no scleral icterus Heart: no chest pain, no chest pressure Lung: no cough, no dyspnea with exertion Abdomen: see HPI Physical exam: General: NAD, AAOX3 Chest: lung licona clear to auscultation Heart: RRR, no murmur Abdomen: non-distended,+ epigastric tenderness to palpation, +BS Labs: Labs Test 11/11/25 11:08 11/11/25 09:02 11/11/25 05:34 11/10/25 12:52 Range/Units Urine Test Negative Negative Urine Opiates Screen Pos NEGATIVE Urine Fentanyl Screen Neg NEGATIVE Urine Barbiturates Screen Neg NEGATIVE Urine Phencyclidine Screen Neg NEGATIVE Urine Amphetamines Screen Neg NEGATIVE Urine Benzodiazepines Screen Neg NEGATIVE Urine Cocaine Screen Neg NEGATIVE Urine Cannabinoids Screen Pos NEGATIVE Lipase 38 12-53 U/L Plasma/Serum Blood Alcohol < 3.0 <10 mg/dL White Blood Count 9.3 4.4-10.8 10^3/uL Red Blood Count 4.52 4.0-5.20 10^6/uL Hemoglobin 14.0 12.2-16.2 g/dL Hematocrit 40.1 # 36.0-46.0 % Mean Corpuscular Volume 88.5 80.0-100.0 fL Mean Corpuscular Hemoglobin 31.0 28.0-32.0 pg Mean Corpuscular Hemoglobin Concent 35.0 32.0-36.0 g/dL Red Cell Distribution Width 12.2 11.8-14.3 % Platelet Count 243 140-450 10^3/uL Mean Platelet Volume 8.2 6.9-10.8 fL Neutrophils (%) (Auto) 63.5 37.0-80.0 % Lymphocytes (%) (Auto) 24.7 10.0-50.0 % Monocytes (%) (Auto) 11.1 0.0-12.0 % Eosinophils (%) (Auto) 0.3 0.0-7.0 % Basophils (%) (Auto) 0.4 0.0-2.0 % Neutrophils # (Auto) 5.9 1.6-8.6 10 ^3/uL Lymphocytes # (Auto) 2.3 0.4-5.4 10 ^3/uL Monocytes # (Auto) 1.0 0-1.3 10 ^3/uL Eosinophils # (Auto) 0 0-0.8 10 ^3/uL Basophils # (Auto) 0 0-0.2 10 ^3/uL Nucleated Red Blood Cells 0.3 % Erythrocyte Sedimentation Rate 2 0-20 mm/hr Prothrombin Time 12.7 H 9.3-11.8 sec Prothrombin Time INR 1.22 H 0.9-1.15 Activated Partial Thromboplast Time 25.7 24.5-34.5 SEC Sodium Level 138 136-145 mmol/L Potassium Level 3.0 L 3.5-5.1 mmol/L Chloride Level 104 98-107 mmol/L Carbon Dioxide Level 23 20-31 mmol/L Anion Gap 11 5-15 Blood Urea Nitrogen 6 L 9-23 mg/dL Creatinine 0.65 0.550-1.02 mg/dL Glomerular Filtration Rate Calc 123 >90 mL/min BUN/Creatinine Ratio 9.2 L 10.0-20.0 Serum Glucose 105 74-106 mg/dL Hemoglobin A1c 4.9 <5.7 % A1C Calcium Level 8.2 L 8.7-10.4 mg/dL Magnesium Level 2.2 1.6-2.6 mg/dL Total Bilirubin 3.4 H 0.2-1.0 mg/dL Direct Bilirubin 1.5 H <0.3 mg/dL Aspartate Amino Transferase (AST) 131 H 13-40 U/L Alanine Aminotransferase (ALT) 166 H 7-40 U/L Alkaline Phosphatase 62 46-116 U/L C-Reactive Protein High Sensitivity 0.06 <1.0 mg/dL Total Protein 6.4 5.7-8.2 g/dL Albumin 4.0 3.2-4.8 g/dL Vitamin D 25-Hydroxy 15.2 L 30.0-100 ng/mL Thyroid Stimulating Hormone (TSH) 2.44 0.55-4.78 uIU/mL Beta HCG, Quantitative < 0.0 L 1.5-4.2 mIU/mL Hepatitis A IgM Antibody Negative Hepatitis B Surface Antigen Negative Negative Hepatitis B Core IgM Antibody Negative Negative Hepatitis C Antibody Negative Negative Urine Color Yellow Yellow Urine Clarity Hazy H Clear Urine pH 8.0 5.0-9.0 Urine Specific [place] 1.026 1.001-1.035 Urine Protein Trace H Negative Urine Ketones 3+ H Negative Urine Blood Trace H Negative /uL Urine Nitrite Negative Negative Urine Bilirubin Negative Negative Urine Urobilinogen 2 H Negative mg/dL Urine Leukocyte Esterase 3+ Negative /uL Urine RBC 6 0 - 4 /hpf Urine Microscopic WBC 17 H 0-5 /HPF Urine Squamous Epithelial Cells Mod <5 /hpf Urine Bacteria Few H None Seen /hpf Urine Glucose Normal Normal mg/dL Test 11/10/25 10:05 Range/Units Lactic Acid Level 1.4 0.4-2.0 mmol/L Microbiology Date/Time Source Procedure Growth Status 11/10/25 10:11 Blood Blood Culture - Preliminary NO GROWTH AFTER 24 HOURS OF INCUBATION. Resulted Imaging: Abdominal ultrasound IMPRESSION: Large amount of gallbladder sludge. Assessment: Intractable nausea and vomiting Abdominal pain Abnormal results of abdominal ultrasound with large amount of gallbladder sludge Plan: Patient also seen and examined by Dr. Guero MARTINEZ scan Surgical consult Monitor labs We will continue to follow patient Plan discussed with patient and RN Thank you for this consult Date of Service: Nov 11, 2025 Billing Provider: SHANNON BONE Common Visit Codes: CONSULT ONLY Consultation Codes: [id number] CONSULT <60MIN SHANNON BONE Nov 11, 2025 14:19
[2025-11-11 14:20] LABS: COVID19 ANTIGEN SOFIA FIA NEGATIVE (NEGATIVE)
[2025-11-11] MEDS ORDERED: ERGOCALCIFEROL 50,000 UNIT(1.25MG) CAP PO SCH (14:45)
[2025-11-11] MEDS: ERGOCALCIFEROL 50,000 UNIT(1.25MG) CAP PO SCH (15:49)
--- NOTE | 2025-11-11 16:00 | DVH ---
[id number] MRI MRCP MRI Attending Name: MANUEL VALDEZ RESIDENT COMPARISON: Ultrasound abdomen done 11/10/2020 INDICATION: R/O Acute cholecystitis TECHNIQUE: MRCP was performed without the use of intravenous contrast using a MRI imaging system. Three-dimensional MRCP was performed using maximum intensity projection reconstruction on an independent workstation under concurrent supervision. FINDINGS: Visualized lower thorax: Limited imaging of the thorax demonstrates no suspicious pleural or parenchymal disease. Liver: Normal in morphology and signal intensity. Gallbladder: No evidence of cholelithiasis or gallbladder wall thickening. Biliary system: There is no intrahepatic or extrahepatic bile duct dilatation. No filling defect to suggest choledocholithiasis. Spleen: Normal in morphology and signal intensity. Pancreas: Normal in morphology and signal intensity. Adrenal glands: Normal in morphology and signal intensity. Kidneys: The kidneys are symmetric in size and appearance. No hydronephrosis. Urinary tract: The included ureters, as visualized, are normal in course and caliber. GI tract: The included portions of the bowel are within normal limits. Lymph nodes: No enlarged lymph nodes. Peritoneum: No ascites. Musculoskeletal: The bone marrow signal intensity is within normal limits. IMPRESSION: 1. No intra or extra hepatic biliary ductal dilatation. No MRI evidence of choledocholithiasis or cholecystitis.
--- NOTE | 2025-11-11 16:22 | DVHINCON2 ---
Consultation - Surgical Date Seen: Nov 12, 2025 Referring Physician Reason for Consultation Cholecystitis with choledocholithiasis History of Present Illness History of Present Illness Mrs. Villanueva is a 30-year-old female who presented to the hospital yesterday with a epigastric and right upper quadrant abdominal pain. She states that she gets this pain episodes for the past 5 years, occasionally. She has been to the hospital on several other occasions due to the same pain, and at the beginning she was treated with antiacid medications, for which she states they do not help at all. Denies fevers, chills, changes in urinary or stooling habits, acholic stools. Past Medical/Surgical History Past Medical/Surgical History PMH/PSH denies Family and Social History Family and Social History Family history noncontributory ETOH/T Ob/drugs denies Allergies and medications Allergies: Coded Allergies: NO KNOWN ALLERGIES (Unverified , 02/17/24) Home Meds Active Scripts Docusate Sodium (Docusate Sodium) 100 Mg Cap, 100 MG PO HS PRN for 30 Days, #30 CAP 2 Refills Prov:DEAN CORONA CN 05/26/24 Ibuprofen Micronized (MOTRIN TABLET) 600 Mg Tb, 600 MG PO Q6HP PRN for 20 Days, #80 TAB Prov:DEAN CORONA CN 05/26/24 Vit W/ Ferrous Fumara (PNV PLUS MULTIVI) Plus Tab, 1 TAB PO DAILY for 90 Days, #90 TAB 3 Refills Prov:ISISDALONDRAAPOORVAHI CN 05/26/24 Pantoprazole Sodium Sesquihydr (Protonix) 40 Mg Tab, 40 MG PO DAILY, #30 TAB 3 Refills Prov:APOORVA CORONAHI CN 02/17/24 Review of systems Review of Systems: HEENT:Normal, CVS:Normal, RESPIRATORY:Normal, GI:Abnormal (See HPI), :Normal, MSK:Normal, NEURO:Normal Examination Vital signs Vital Signs Date Time Temp Pulse Resp B/P (MAP) Pulse Ox O2 Delivery O2 Flow Rate FiO2 11/11/25 12:35 98.3 64 19 115/80 (92) 99 98.3 11/11/25 08:00 Room Air* 0 21 Medications Current Medications Medications (Trade) Dose Ordered Sig/Sudhir Route PRN Reason Start Time Stop Time Status Last Admin Enoxaparin Sodium (Lovenox) 40 mg DAILY SC 11/11/25 10:00 11/11/25 09:06 Pantoprazole Sodium (Protonix) 40 mg DAILY IV 11/11/25 10:00 11/11/25 09:05 Sucralfate (Carafate Susp) 1 gm BID@0600,2200 PO 11/10/25 22:00 11/11/25 05:17 Ceftriaxone Sodium 50 ml @ 100 mls/hr DAILY@09 IV 11/11/25 09:00 11/11/25 09:05 Ergocalciferol (Vitamin D 50,000 Unit) 50,000 unit Q7D PO 11/11/25 14:45 11/11/25 15:49 Ergocalciferol (Vitamin D 50,000 Unit) 50,000 unit Q7D PO 11/11/25 14:45 11/11/25 15:21 DC Laboratory Labs Test 11/11/25 15:08 11/11/25 11:08 11/11/25 09:02 11/11/25 05:34 Range/Units Urine Test Negative Negative Urine Opiates Screen Pos NEGATIVE Urine Fentanyl Screen Neg NEGATIVE Urine Barbiturates Screen Neg NEGATIVE Urine Phencyclidine Screen Neg NEGATIVE Urine Amphetamines Screen Neg NEGATIVE Urine Benzodiazepines Screen Neg NEGATIVE Urine Cocaine Screen Neg NEGATIVE Urine Cannabinoids Screen Pos NEGATIVE Influenza Type A Antigen Negative Negative Influenza Type B Antigen Negative Negative SARS-CoV-2 Antigen (Rapid) Negative NEGATIVE Lipase 38 12-53 U/L Plasma/Serum Blood Alcohol < 3.0 <10 mg/dL White Blood Count 9.3 4.4-10.8 10^3/uL Red Blood Count 4.52 4.0-5.20 10^6/uL Hemoglobin 14.0 12.2-16.2 g/dL Hematocrit 40.1 # 36.0-46.0 % Mean Corpuscular Volume 88.5 80.0-100.0 fL Mean Corpuscular Hemoglobin 31.0 28.0-32.0 pg Mean Corpuscular Hemoglobin Concent 35.0 32.0-36.0 g/dL Red Cell Distribution Width 12.2 11.8-14.3 % Platelet Count 243 140-450 10^3/uL Mean Platelet Volume 8.2 6.9-10.8 fL Neutrophils (%) (Auto) 63.5 37.0-80.0 % Lymphocytes (%) (Auto) 24.7 10.0-50.0 % Monocytes (%) (Auto) 11.1 0.0-12.0 % Eosinophils (%) (Auto) 0.3 0.0-7.0 % Basophils (%) (Auto) 0.4 0.0-2.0 % Neutrophils # (Auto) 5.9 1.6-8.6 10 ^3/uL Lymphocytes # (Auto) 2.3 0.4-5.4 10 ^3/uL Monocytes # (Auto) 1.0 0-1.3 10 ^3/uL Eosinophils # (Auto) 0 0-0.8 10 ^3/uL Basophils # (Auto) 0 0-0.2 10 ^3/uL Nucleated Red Blood Cells 0.3 % Erythrocyte Sedimentation Rate 2 0-20 mm/hr Reticulocyte Count (auto) 1.34 0.5-1.5 % Prothrombin Time 12.7 H 9.3-11.8 sec Prothrombin Time INR 1.22 H 0.9-1.15 Activated Partial Thromboplast Time 25.7 24.5-34.5 SEC Sodium Level 138 136-145 mmol/L Potassium Level 3.0 L 3.5-5.1 mmol/L Chloride Level 104 98-107 mmol/L Carbon Dioxide Level 23 20-31 mmol/L Anion Gap 11 5-15 Blood Urea Nitrogen 6 L 9-23 mg/dL Creatinine 0.65 0.550-1.02 mg/dL Glomerular Filtration Rate Calc 123 >90 mL/min BUN/Creatinine Ratio 9.2 L 10.0-20.0 Serum Glucose 105 74-106 mg/dL Hemoglobin A1c 4.9 <5.7 % A1C Calcium Level 8.2 L 8.7-10.4 mg/dL Magnesium Level 2.2 1.6-2.6 mg/dL Total Bilirubin 3.4 H 0.2-1.0 mg/dL Direct Bilirubin 1.5 H <0.3 mg/dL Aspartate Amino Transferase (AST) 131 H 13-40 U/L Alanine Aminotransferase (ALT) 166 H 7-40 U/L Alkaline Phosphatase 62 46-116 U/L Lactate Dehydrogenase 278 H 120-246 U/L C-Reactive Protein High Sensitivity 0.06 <1.0 mg/dL Total Protein 6.4 5.7-8.2 g/dL Albumin 4.0 3.2-4.8 g/dL Vitamin D 25-Hydroxy 15.2 L 30.0-100 ng/mL Thyroid Stimulating Hormone (TSH) 2.44 0.55-4.78 uIU/mL Beta HCG, Quantitative < 0.0 L 1.5-4.2 mIU/mL Hepatitis A IgM Antibody Negative Hepatitis B Surface Antigen Negative Negative Hepatitis B Core IgM Antibody Negative Negative Hepatitis C Antibody Negative Negative Test 11/10/25 12:52 11/10/25 10:05 Range/Units Urine Color Yellow Yellow Urine Clarity Hazy H Clear Urine pH 8.0 5.0-9.0 Urine Specific [place] 1.026 1.001-1.035 Urine Protein Trace H Negative Urine Ketones 3+ H Negative Urine Blood Trace H Negative /uL Urine Nitrite Negative Negative Urine Bilirubin Negative Negative Urine Urobilinogen 2 H Negative mg/dL Urine Leukocyte Esterase 3+ Negative /uL Urine RBC 6 0 - 4 /hpf Urine Microscopic WBC 17 H 0-5 /HPF Urine Squamous Epithelial Cells Mod <5 /hpf Urine Bacteria Few H None Seen /hpf Urine Glucose Normal Normal mg/dL Lactic Acid Level 1.4 0.4-2.0 mmol/L Microbiology Date/Time Source Procedure Growth Status 11/10/25 10:11 Blood Blood Culture - Preliminary NO GROWTH AFTER 24 HOURS OF INCUBATION. Resulted Examination: GENERAL:Normal (AAO x3), HEENT:Normal (No icterus, neck supple), LUNGS:Normal (Nonlabored breathing with symmetric expansion), ABDOMEN:Abnormal (Nondistended, soft, depressible, no scar, no masses, no hernias, epigastric and right upper quadrant tenderness), SKIN:Normal (No jaundice) Problem List/Assessment/Plan Problems: (1) Choledocholithiasis with acute cholecystitis Assessment and Plan Mrs. Villanueva is a 30-year-old female who presents with choledocholithiasis versus passed stone and acute cholecystitis. Ultrasound shows extensive sludge and stones in the gallbladder, CBD slightly enlarged at 4 mm for her age. MRCP was reviewed and it does not show any stones in the common bile duct, likely passed the stone, given that she has elevated total bilirubin level with a predominant direct component at 1.5. Labs this morning show downtrending total bilirubin and direct bilirubin levels, this is consistent with likely passage of a stone. Patient will benefit from laparoscopic cholecystectomy. Procedure, risks, benefits, complications, and alternatives discussed with the patient and spouse. They agree with the procedure. 1. NPO 2. On-call to OR for laparoscopic cholecystectomy 3. A.m. labs: CBC, CMP, direct bilirubin 4. Pain and nausea control 5. Out of bed and ambulate Plan discussed with Plan discussed with: Patient, Spouse Visit Coding Surgery Date of Service if different f: Nov 12, 2025 Billing Provider: DIONICIO FAJARDO MD Surgery Visit Codes: 70208 - INP CONSULT <110 MIN DIONICIO FAJARDO MD Nov 11, 2025 16:22
--- NOTE | 2025-11-11 17:01 | ECG ---
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
--- NOTE | 2025-11-11 17:46 | DVH ---
CHEST RADIOGRAPH INDICATION: PNA TECHNIQUE: Single frontal view of the chest was obtained COMPARISON: None FINDINGS: Lines and Tubes: None Lungs: No focal consolidation. Pleura: No effusion. No pneumothorax. Cardiomediastinal contours: Unremarkable Bones: No acute osseous abnormality. IMPRESSION: 1. No acute cardiopulmonary disease.
[2025-11-12] VITALS (9 sets, daily range): BP systolic 108–140; BP diastolic 66–97; PULSE 46–79; RESP 14–19; TEMP 97.7–98.7; O2SAT 94–100
[2025-11-12 06:32] LABS: Hematocrit 40.7 % (36.0-46.0); Hemoglobin 14.7 g/dL (12.2-16.2); Mean Corpuscular Hemoglobin 31.4 pg (28.0-32.0); Mean Corpuscular Volume 87.0 fL (80.0-100.0); Nucleated Red Blood Cells % 0.1 %
[2025-11-12 06:52] LABS: Albumin 4.1 g/dL (3.2-4.8); Alkaline Phosphatase 66 U/L (46-116); Anion Gap 12 (5-15); BUN/Creatinine Ratio 8.2 (10.0-20.0); Carbon Dioxide 24 mmol/L (20-31); Chloride 106 mmol/L (98-107); Glucose 86 mg/dL (74-106); Magnesium 2.4 mg/dL (1.6-2.6); Sodium 142 mmol/L (136-145); Total Protein 6.5 g/dL (5.7-8.2)
[2025-11-12 06:59] LABS: INR 1.23 (0.9-1.15); Partial Thromboplastin Time 25.9 SEC (24.5-34.5); Prothrombin Time 12.8 sec (9.3-11.8)
[2025-11-12 07:01] LABS: Alanine Aminotransferase 176 U/L (7-40); Bilirubin, Total 1.7 mg/dL (0.2-1.0); Blood Urea Nitrogen 6 mg/dL (9-23); Calcium 8.5 mg/dL (8.7-10.4); Potassium 3.2 mmol/L (3.5-5.1)
[2025-11-12] MEDS ORDERED: POTASSIUM CHL 20MEQ/100ML 100 ML IV SCH (07:15)
[2025-11-12] MEDS: POTASSIUM CHL 20MEQ/100ML 100 ML IV SCH (08:45)
[2025-11-12] MEDS ORDERED: fentaNYL CITRATE 100 MCG/2 ML VL ONE ×2 (11:52→12:21)
[2025-11-12] MEDS ORDERED: MIDAZOLAM HCL 2MG/2ML 2ml VIAL (1mg/ml) ONE (11:52)
[2025-11-12] MEDS: BUPIVACAINE HCL 0.25% P/F 10 ML VIAL ONE (12:17)
[2025-11-12] MEDS ORDERED: ACETAMINOPHEN 325 MG TAB PO SCH (13:15)
[2025-11-12] MEDS ORDERED: HYDROcodone-ACET 10/325MG TAB PO PRN (13:15)
[2025-11-12] MEDS ORDERED: ACETAMINOPHEN IV 100 ML IV ONE (13:21)
--- NOTE | 2025-11-12 13:22 | DVHOP2 ---
Operative Report - 2 Report Details Date: 11/12/25 Preop Diagnosis: Choledocholithiasis with acute cholecystitis Postop Diagnosis: Early acute cholecystitis Surgeon: Dionicio Galvez MD Anesthesiologist: Dr. Quintana Anesthesia: General Consent: The patient was informed of the risks and benefits of the procedure. These include but are not limited to complications of anesthesia, postoperative infection, incomplete relief of symptoms, recurrence of symptoms, damage to blood vessels, nerves and tendons, deep venous thrombosis, pulmonary embolism and possible need for repeat surgery in the future. Complications: None Estimated Blood Loss: 5 mL Findings: Hypervascular normal-appearing gallbladder Indications for Surgery: Choledocholithiasis with the acute cholecystitis Name of Procedure Performed Laparoscopic cholecystectomy Procedure Details Procedure Details: Upon arrival to the operating room the patient was transferred to the operating table and placed in the supine position with arms extended. General endotracheal anesthesia was induced. Time-out was observed. Patient was prepped and draped in the standard sterile surgical fashion with chlorhexidine. I then proceeded to make an infraumbilical curvilinear incision and carried the dissection down to the fascia. Once at the fascia I grasped the umbilical stalk with a Nain clamp and walked it down to its base. Once at the base of the umbilical stalk I gained entry into the peritoneal cavity utilizing Albarran technique. I then placed a fascial retention stitch of 0 Vicryl in [id number] fashion. I then inserted the Albarran cannula and insufflated the peritoneal cavity to 15 mmHg with toleration. I then introduced a 10 mm 30 d egree laparoscope, surveyed the entry site, no injuries noted. Patient was then placed in the reverse Trendelenburg [id number] position. I then placed 3 additional 5 mm working ports under direct vision at the epigastric area, right midclavicular subcostal area, and right flank area. I then directed my attention to the liver and gallbladder. The gallbladder was then grasped at the fundus with a atraumatic grasper and retracted cephalad and towards the right shoulder. A 2nd grasper was used at the infundibulum and retracted laterally, thus exposing Calot triangle. I then proceeded to incise the peritoneum at the base of the gallbladder and carried the dissection down to the liver. I then proceeded to clear all the fibrous and fatty tissue from cholesterol angle until I identified 2 structures entering the gallbladder, the cystic duct and cystic artery. Critical view of safety was obtained. I then milked the cystic duct for any stones, non felt. I then placed 3 5 mm clips proximal in the cystic octavio t and 1 distal. I then placed 2 5 mm clips proximal on the cystic artery and 1 distal. There was an additional posterior branch of the cystic artery that was also clipped. Artery reason duct were transected. I had some bile spillage from a hole at the infundibulum grasper site. I then proceeded to free the gallbladder off of the liver bed with electrocautery. Once the gallbladder was completely off the liver, it was placed in the Endo-Catch bag and taken out of the peritoneal cavity through the infraumbilical incision under direct vision. I then proceeded to inspect the liver bed, there was an area of small ooze that was cauterized, hemostasis achieved. I then proceeded to serially irrigated over the liver under the liver and on the gallbladder fossa until all effluent was clear. I then proceeded to take a 2nd look at the liver bed, it was hemostatic. I then looked at the clips they were all in place. This concluded the intraperitoneal portion of the operation. All counts were complete and correct. I then removed the 5 mm working ports under direct vision, no bleeding coming from abdominal wall. Peritoneal cavity was allowed to fully desufflate. Previous fascial retention suture was closed. All skin sites were closed with 4-0 Monocryl and Dermabond. 0.25% Marcaine was used as local anesthetic. Patient tolerated the procedure well and was transferred to PACU in stable condition. Specimen: Gallbladder and contents Condition Stable Disposition Still a Patient DIONICIO FAJARDO MD Nov 12, 2025 13:22
[2025-11-12] MEDS: ACETAMINOPHEN IV 1000 MG/100ML (10MG/ML) IV ONE (13:30)
[2025-11-12] MEDS ORDERED: ONDANSETRON HCL 4 MG/2 ML VIAL ONE (13:30)
[2025-11-12] MEDS ORDERED: HYDROmorphone HCL 2 MG/ML VL/or syr IV PRN ×2 (13:30)
[2025-11-12] MEDS ORDERED: HYDROmorphone HCL 2 MG/ML VL/or syr ONE (13:31)
[2025-11-12] MEDS: ONDANSETRON HCL 4 MG/2 ML VIAL IV PRN (13:35)
[2025-11-12] MEDS: HYDROmorphone HCL 2 MG/ML VL/or syr IV PRN ×2 (13:35→20:15)
[2025-11-12] MEDS: HYDROcodone-ACET 5/325MG TAB PO PRN (15:50)
--- NOTE | 2025-11-12 18:58 | DVHPNRES ---
Progress Note Date Seen: Nov 12, 2025 Resident Creating Document: KELSEY [place] RESIDENT Medical Necessity Reason Pt with a Central, PICC or Fol: No Subjective Review of Systems PHI Lashaun Austin is 30 years old female, with a past medical history of gastritis. The patient came to [facility] with chief complaint of abdominal pain and nausea and vomiting. The patient reports she has been having abdominal pain in the RUQ and epigastrion on and off for the last couple years. The patient reports that a day prior the admission the abdominal pain became intractable, this abdominal pain was localized in the RUQ and epigastric in region, constant, 10/10 abdominal pain, no irradiations, associated nausea and intractable vomiting, watery, nonbloody. Patient denied any fever, acute joint ratio swelling, chest pain no shortness a breath. Initial lab workup revealed leukocytosis WBC 12.0, hypokalemia with a potassium 3.4, transaminitis with a serum bilirubin 3.6, direct bilirubin 1.5, ALT 166, AST 131, urinalysis revealed UTI with leukocyte esterase 3+, WBC 17, bacteria few. Acute hepatitis panel negative. COVID and flu negative. UDS positive for cannabinoids and opiates. Serum alcohol< 3. Gallbladder ultrasound- Large amount of gallbladder sludge. Renal ultrasound left mild hydronephrosis, mild bladder wall thickening. PMH-gastritis PSH- none Allergy- NKDA Personal History/ Social History- occasional alcohol use and marijuana use. Lives with the family has been Hospital course: On 11/12/25, the patient was evaluated and examined at bedside. VS, labs and chart were reviewed. The patient reports pain in the RUQ 9/10, mildly improved with analgesia in the morning. No fever were reported during the night. The patient is receiving IV antibiotics (Metronidazole and Ceftriaxone). Blood culture no growth so far. The patient was NPO and underwent laparoscopic cholecystectomy surgery today. No complications were reported during the surgery. The patient is back to her room alert and oriented x3. Reports mild abdominal pain in the surgical incisions. The patient will continue receiving analgesia. We will continue providing updates in this patient progress. ROS: Constitutional: No: Fever, Chills, Sweats, Malaise, Other Eyes: Yellow coloration in the eyes. No: Vision change, Conjunctivae inflammation, Eyelid inflammation, Other, Redness ENT: No: Ear pain, Ear discharge, Nose pain, Nose discharge, Nose congestion, Mouth pain, Mouth swelling, Throat pain, Throat swelling, Other Respiratory: No: Dry, SOB with excertion, Hemoptysis, Pleuritic Pain, Sputum, Wheezing Cardiovascular: No: Chest Pain, Palpitations, Orthopnea, Paroxysmal Noc. Dyspnea, Edema, Lt Headedness, Other Gastrointestinal: Yes: Abdominal Pain over the surgical incisions. No: Nausea, Vomiting, Diarrhea, Constipation, Melena, Hematochezia, Other Genitourinary: No Dysuria, No Frequency, No Incontinence, No Hematuria, No Retention, No Other Musculoskeletal: No: other, neck pain, shoulder pain, arm pain, back pain, hand pain, leg pain, foot pain Skin: Yellow coloration in the skin Neurological: No: Weakness, Numbness, Incoordination, Change in speech, Confusion, Seizures, Other Objective vital signs Vital Sign Date Time Temp Pulse Resp B/P (MAP) Pulse Ox O2 Delivery O2 Flow Rate FiO2 11/12/25 17:00 98.7 70 17 128/82 (97) 96 98.7 11/12/25 13:43 Room Air 11/12/25 13:14 6.0 100 Total Intake and Output 11/11/25 11/11/25 11/12/25 15:00 23:00 07:00 Intake Total 480 ml 796 ml 1915 ml Balance 480 ml 796 ml 1915 ml medications Current Medications Medications Dose Ordered Sig/Sudhir Route Start Time Stop Time Status Last Admin Dose Admin Sodium Chloride 10 ml Q8HR IV 11/10/25 14:00 11/12/25 14:19 10 ML Sodium Chloride 1,000 ml @ 120 mls/hr Q8H20M IV 11/10/25 10:15 11/12/25 08:53 120 MLS/HR Ondansetron HCl 4 mg Q4HP PRN IV 11/10/25 10:15 11/12/25 06:31 4 MG Enoxaparin Sodium 40 mg DAILY SC 11/11/25 10:00 11/12/25 09:06 40 MG Metoclopramide HCl 5 mg Q6HPRN PRN IV 11/10/25 10:15 11/12/25 08:42 5 MG Pantoprazole Sodium 40 mg DAILY IV 11/11/25 10:00 11/12/25 09:06 40 MG Sucralfate 1 gm BID@0600,2200 PO 11/10/25 22:00 11/12/25 05:49 1 GM Ceftriaxone Sodium 50 ml @ 100 mls/hr DAILY@09 IV 11/11/25 09:00 11/12/25 09:05 100 MLS/HR Metronidazole 100 ml @ 100 mls/hr Q8HR IV 11/10/25 14:00 11/12/25 14:19 100 MLS/HR Ergocalciferol 50,000 unit Q7D PO 11/11/25 14:45 11/11/25 15:49 50,000 UNIT Acetaminophen 650 mg Q6HR PO 11/12/25 13:15 Acetaminophen/ Hydrocodone Bitart 1 tab Q4HPRN PRN PO 11/12/25 13:15 11/12/25 15:50 1 TAB Acetaminophen/ Hydrocodone Bitart 1 tab Q4HP PRN PO 11/12/25 13:15 Hydromorphone HCl 0.25 mg Q6HPRN PRN IV 11/12/25 15:15 Examination General Appearance: laying in bed, Alert, Oriented X3, Cooperative, mild distress post surgical HEENT: jaundice in sclera Atraumatic, PERRLA, EOMI, Mucous membr. moist/pink Respiratory: Normal air movement, no roncus or crackles. Cardiovascular: Regular rate, Normal S1, Normal S2, No murmurs, no chest pain on palpation of the chest. Abdominal: Wearing a compression garment, diffuse mild tenderness. Extremities; normal tone. no edema. Skin: jaundice in face and abdomen. no rash Neuro: Normal speech, Strength at 5/5 X4 ext, Normal tone, Sensation intact Psych/Mental Status: Oriented X3, Cooperative laboratory and microbiology Laboratory Tests 11/12/25 04:51 Test 11/12/25 04:51 Range/Units Serum Glucose 86 74-106 mg/dL Microbiology Date/Time Source Procedure Growth Status 11/11/25 11:08 Voided Urine Urine Culture - Preliminary No growth Resulted 11/10/25 10:11 Blood Blood Culture - Preliminary NO GROWTH AFTER 48 HOURS OF INCUBATION. Resulted Problem List/Assessment/Plan Problem List/Assessment/Plan #Sepsis likely due to acute complicated UTI #Intractable abdominal pain with nausea and vomiting likely due to the above/gastritis/gastroenteritis/marijuana induced hyperemesis #Acute gastroenteritis likely infectious etiology #Suspected marijuana induced hyperemesis -pending urine culture - blood culture no growth so far -continue IV fluid as prescribed -Continue ceftriaxone and metronidazole as prescribed -continue pantoprazole and sucralfate as prescribed -patient is seen by Gastroenterology, recommended for HIDA scan and surgery consult -MRCP revealed-No intra or extra hepatic biliary ductal dilatation. No MRI evidence of choledocholithiasis or cholecystitis. -Surgical consult: Ongoing, patient underwent laparoscopic cholecystectomy today 11/12/25 -monitor vitals #Possible Acute Cholecystitis #Transaminitis #Status post cholecystectomy -ultrasound of the gallbladder revealed sludge in the gallbladder -gastroenterology on board -Status post surgery: Continue with analgesia. Monitor VS #Possible PUD -continue pantoprazole and sucralfate -gastroenterology on board Diet Cardiac diet Code status: full code Disposition: Home no needs. PCP: No esablished, f/u with d/c clinic Patient's status and plan discussed with the patient and partner >30min. Patient agrees with the plan Case discussed with Dr. Sánchez Plan discussed with: Patient My Orders My Orders Orders - KELSEY [place] RESIDENT Procedure Category Date Status Time Hydromorphone PHA 11/12/25 In Process Injection (Dilaudid 15:15 Dietary Evaluation Review Comments: Nutrition Recommendation: 1) Consider cardiac soft diet 2) Monitor PO intake, lab values, weight trend, and I/O Expected Outcomes/Goals: Lab values to improve FU 3-5 days Visit Coding STANDARD RES Billing Provider: CORINNA SÁNCHEZ MD Date of Service if different f: Nov 12, 2025 Common Visit Codes: [id number] INP/OBS CARE(HIGH) KELSEY [place] RESIDENT Nov 12, 2025 18:58
--- NOTE | 2025-11-12 21:24 | DVHPN2 ---
Progress Note - Dictate Date Seen: Nov 12, 2025 Medical Necessity Reason Pt with a Central, PICC or Fol: No Subjective No new complaints Patient is S/P laparoscopic cholecystectomy today vital signs Vital Sign Date Time Temp Pulse Resp B/P (MAP) Pulse Ox O2 Delivery O2 Flow Rate FiO2 11/12/25 21:00 98.4 61 17 109/68 (82) 94 98.4 11/12/25 13:43 Room Air 11/12/25 13:14 6.0 100 Total Intake and Output 11/11/25 11/11/25 11/12/25 15:00 23:00 07:00 Intake Total 480 ml 796 ml 1915 ml Balance 480 ml 796 ml 1915 ml medications Current Medications Medications Dose Ordered Sig/Sudhir Route Start Time Stop Time Status Last Admin Dose Admin Sodium Chloride 10 ml Q8HR IV 11/10/25 14:00 11/12/25 14:19 10 ML Sodium Chloride 1,000 ml @ 120 mls/hr Q8H20M IV 11/10/25 10:15 11/12/25 08:53 120 MLS/HR Ondansetron HCl 4 mg Q4HP PRN IV 11/10/25 10:15 11/12/25 06:31 4 MG Enoxaparin Sodium 40 mg DAILY SC 11/11/25 10:00 11/12/25 09:06 40 MG Metoclopramide HCl 5 mg Q6HPRN PRN IV 11/10/25 10:15 11/12/25 08:42 5 MG Pantoprazole Sodium 40 mg DAILY IV 11/11/25 10:00 11/12/25 09:06 40 MG Sucralfate 1 gm BID@0600,2200 PO 11/10/25 22:00 11/12/25 05:49 1 GM Ceftriaxone Sodium 50 ml @ 100 mls/hr DAILY@09 IV 11/11/25 09:00 11/12/25 09:05 100 MLS/HR Metronidazole 100 ml @ 100 mls/hr Q8HR IV 11/10/25 14:00 11/12/25 14:19 100 MLS/HR Ergocalciferol 50,000 unit Q7D PO 11/11/25 14:45 11/11/25 15:49 50,000 UNIT Acetaminophen 650 mg Q6HR PO 11/12/25 13:15 Acetaminophen/ Hydrocodone Bitart 1 tab Q4HPRN PRN PO 11/12/25 13:15 11/12/25 15:50 1 TAB Acetaminophen/ Hydrocodone Bitart 1 tab Q4HP PRN PO 11/12/25 13:15 Hydromorphone HCl 0.25 mg Q6HPRN PRN IV 11/12/25 15:15 11/12/25 20:15 0.25 MG laboratory and microbiology Laboratory Tests 11/12/25 04:51 Test 11/12/25 04:51 Range/Units Serum Glucose 86 74-106 mg/dL Prognosis Plan Continue supportive care Monitor labs Advance diet as tolerated Outpatient follow up with GI Services upon discharge Protonix 40 mg IV daily Dietary Evaluation Review Comments: Nutrition Recommendation: 1) Consider cardiac soft diet 2) Monitor PO intake, lab values, weight trend, and I/O Expected Outcomes/Goals: Lab values to improve FU 3-5 days Plan discussed with: Patient LIO RODRIGUEZ MD Nov 12, 2025 21:24
[2025-11-13 01:00] VITALS: BP 113/78; PULSE 55; RESP 16; TEMP 98.6; O2SAT 97
[2025-11-13 05:00] VITALS: BP 114/71; PULSE 53; RESP 17; TEMP 97.9; O2SAT 97
[2025-11-13 06:11] LABS: Hematocrit 38.4 % (36.0-46.0); Hemoglobin 13.7 g/dL (12.2-16.2); Mean Corpuscular Hemoglobin 30.8 pg (28.0-32.0); Mean Corpuscular Volume 86.2 fL (80.0-100.0); Nucleated Red Blood Cells % 0.1 %
[2025-11-13 06:27] LABS: Albumin 3.9 g/dL (3.2-4.8); Alkaline Phosphatase 62 U/L (46-116); Anion Gap 10 (5-15); BUN/Creatinine Ratio 7.9 (10.0-20.0); Carbon Dioxide 24 mmol/L (20-31); Chloride 102 mmol/L (98-107); Glucose 103 mg/dL (74-106); Sodium 136 mmol/L (136-145); Total Protein 6.1 g/dL (5.7-8.2)
[2025-11-13 06:36] LABS: Potassium 3.1 mmol/L (3.5-5.1)
[2025-11-13 06:37] LABS: Alanine Aminotransferase 135 U/L (7-40); Bilirubin, Direct 0.6 mg/dL (<0.3); Bilirubin, Total 1.5 mg/dL (0.2-1.0); Blood Urea Nitrogen 5 mg/dL (9-23); Calcium 8.3 mg/dL (8.7-10.4)
[2025-11-13 08:00] VITALS: PULSE 53; RESP 16; O2SAT 100
[2025-11-13] MEDS: POTASSIUM CHL 20 Meq TABLET PO ONE (08:12)
[2025-11-13] MEDS: POTASSIUM CHL 20MEQ/100ML 100 ML IV SCH (08:13)
[2025-11-13 09:00] VITALS: BP 130/88; PULSE 53; RESP 16; TEMP 98.4; O2SAT 100
--- NOTE | 2025-11-13 12:11 | DVHDSRES ---
Discharge Summary Date of Admission Resident Creating Document: KELSEY ORLANDO RESIDENT Nov 10, 2025 at 10:12 Date of Discharge: Nov 13, 2025 Admitting Diagnosis Sepsis likely due to gastroenteritis/?cholecystitis Labs/Diagnostic Data: Laboratory Results Test 11/13/25 05:35 11/12/25 04:51 11/11/25 15:08 11/11/25 11:08 White Blood Count 14.5 10^3/uL (4.4-10.8) Red Blood Count 4.45 10^6/uL (4.0-5.20) Hemoglobin 13.7 g/dL (12.2-16.2) Hematocrit 38.4 % (36.0-46.0) Mean Corpuscular Volume 86.2 fL (80.0-100.0) Mean Corpuscular Hemoglobin 30.8 pg (28.0-32.0) Mean Corpuscular Hemoglobin Concent 35.7 g/dL (32.0-36.0) Red Cell Distribution Width 12.4 % (11.8-14.3) Platelet Count 224 10^3/uL (140-450) Mean Platelet Volume 8.0 fL (6.9-10.8) Neutrophils (%) (Auto) 66.5 % (37.0-80.0) Lymphocytes (%) (Auto) 21.4 % (10.0-50.0) Monocytes (%) (Auto) 11.4 % (0.0-12.0) Eosinophils (%) (Auto) 0.4 % (0.0-7.0) Basophils (%) (Auto) 0.3 % (0.0-2.0) Neutrophils # (Auto) 9.6 10 ^3/uL (1.6-8.6) Lymphocytes # (Auto) 3.1 10 ^3/uL (0.4-5.4) Monocytes # (Auto) 1.7 10 ^3/uL (0-1.3) Eosinophils # (Auto) 0.1 10 ^3/uL (0-0.8) Basophils # (Auto) 0 10 ^3/uL (0-0.2) Nucleated Red Blood Cells 0.1 % Sodium Level 136 mmol/L (136-145) Potassium Level 3.1 mmol/L (3.5-5.1) Chloride Level 102 mmol/L (98-107) Carbon Dioxide Level 24 mmol/L (20-31) Anion Gap 10 (5-15) Blood Urea Nitrogen 5 mg/dL (9-23) Creatinine 0.63 mg/dL (0.550-1.02) Glomerular Filtration Rate Calc 124 mL/min (>90) BUN/Creatinine Ratio 7.9 (10.0-20.0) Serum Glucose 103 mg/dL (74-106) Calcium Level 8.3 mg/dL (8.7-10.4) Total Bilirubin 1.5 mg/dL (0.2-1.0) Direct Bilirubin 0.6 mg/dL (<0.3) Aspartate Amino Transferase (AST) 50 U/L (13-40) Alanine Aminotransferase (ALT) 135 U/L (7-40) Alkaline Phosphatase 62 U/L (46-116) Total Protein 6.1 g/dL (5.7-8.2) Albumin 3.9 g/dL (3.2-4.8) Prothrombin Time 12.8 sec (9.3-11.8) Prothrombin Time INR 1.23 (0.9-1.15) Activated Partial Thromboplast Time 25.9 SEC (24.5-34.5) Magnesium Level 2.4 mg/dL (1.6-2.6) Haptoglobin 59 mg/dL (33-278) Urine Test Negative (Negative) Urine Opiates Screen Pos (NEGATIVE) Urine Fentanyl Screen Neg (NEGATIVE) Urine Barbiturates Screen Neg (NEGATIVE) Urine Phencyclidine Screen Neg (NEGATIVE) Urine Amphetamines Screen Neg (NEGATIVE) Urine Benzodiazepines Screen Neg (NEGATIVE) Urine Cocaine Screen Neg (NEGATIVE) Urine Cannabinoids Screen Pos (NEGATIVE) Influenza Type A Antigen Negative (Negative) Influenza Type B Antigen Negative (Negative) SARS-CoV-2 Antigen (Rapid) Negative (NEGATIVE) Test 11/11/25 09:02 11/11/25 05:34 11/10/25 12:52 11/10/25 10:05 Lipase 38 U/L (12-53) Plasma/Serum Blood Alcohol < 3.0 mg/dL (<10) Erythrocyte Sedimentation Rate 2 mm/hr (0-20) Reticulocyte Count (auto) 1.34 % (0.5-1.5) Hemoglobin A1c 4.9 % A1C (<5.7) Lactate Dehydrogenase 278 U/L (120-246) Creatine Kinase 52 U/L (34-145) C-Reactive Protein High Sensitivity 0.06 mg/dL (<1.0) Vitamin D 25-Hydroxy 15.2 ng/mL (30.0-100) Thyroid Stimulating Hormone (TSH) 2.44 uIU/mL (0.55-4.78) Beta HCG, Quantitative < 0.0 mIU/mL (1.5-4.2) Hepatitis A IgM Antibody Negative Hepatitis B Surface Antigen Negative (Negative) Hepatitis B Core IgM Antibody Negative (Negative) Hepatitis C Antibody Negative (Negative) Urine Color Yellow (Yellow) Urine Clarity Hazy (Clear) Urine pH 8.0 (5.0-9.0) Urine Specific [place] 1.026 (1.001-1.035) Urine Protein Trace (Negative) Urine Ketones 3+ (Negative) Urine Blood Trace /uL (Negative) Urine Nitrite Negative (Negative) Urine Bilirubin Negative (Negative) Urine Urobilinogen 2 mg/dL (Negative) Urine Leukocyte Esterase 3+ /uL (Negative) Urine RBC 6 /hpf (0 - 4) Urine Microscopic WBC 17 /HPF (0-5) Urine Squamous Epithelial Cells Mod /hpf (<5) Urine Bacteria Few /hpf (None Seen) Urine Glucose Normal mg/dL (Normal) Lactic Acid Level 1.4 mmol/L (0.4-2.0) Other Laboratory Tests 11/13/25 05:35 Brief Hx & Hospital Course: Patient is 30 years old female with a past medical history of gastritis came with a abdominal pain and nausea and vomiting. As per patient she has been having intractable abdominal pain, epigastric in region, constant, 10/10 abdominal pain, relieved with the eating for last couple of days. Pain was associated nausea and intractable vomiting, watery, nonbloody. Patient denied any fever, acute joint ratio swelling, chest pain no shortness a breath. Initial lab workup revealed leukocytosis WBC 12.0, hypokalemia with a potassium 3.4, transaminitis with a serum bilirubin 3.6, direct bilirubin 1.5, ALT 166, AST 131, urinalysis revealed UTI with leukocyte esterase 3+, WBC 17, bacteria few. Acute hepatitis panel negative. COVID and flu negative. UDS positive for cannabinoids and opiates. Serum alcohol< 3. Gallbladder ultrasound- Large amount of gallbladder sludge. Renal ultrasound left mild hydronephrosis, mild bladder wall thickening. Hospital course-during hospital course patient was on IV antibiotic ceftriaxone and metronidazole. Gallbladder ultrasound- Large amount of gallbladder sludge. Renal ultrasound left mild hydronephrosis, mild bladder wall. Patient was seen by surgeon Dr. Jacobson. Patient had status post cholecystectomy for possible early cholecystitis. Postoperative patient was during diet well, no dense tube was placed. Patient passed gas. Since the 11:00 a.m. going home today. Patient was cleared by surgeon for discharge. Patient was being discharged with Augmentin, pantoprazole, ibuprofen and Tylenol PRN. Patient was advised to follow up at DC clinic /PCP/surgeon. Patient's meds were sent to the pharmacy electronically. Patient was hemodynamically stable on discharge. Patient was advised to avoid heavy lifting/weight-bearing for next 6 weeks. Occasional NSAID. General examination- HEENT- PEERLA, no acute nasal discharge Cardiovascular- S1-S2 audible, rate and rhythm regular, no murmur Respiratory- CTAB, no wheeze or rhonchi Gastrointestinal- no tenderness , bowel sound+. Nondistended Musculoskeletal-no acute joint swelling or tenderness or redness Lower extremity- no leg edema Neurological- cranial nerves intact, no acute dysarthria or dysphagia Psychiatry- denies depression or SI or HI Skin- no acute rash or purpura # sepsis likely due to acute complicated UTI # intractable abdominal pain with nausea and vomiting likely due to the above/gastritis/gastroenteritis/marijuana induced hyperemesis # early cholecystitis, status post laparoscopic cholecystectomy # acute gastroenteritis likely infectious etiology # suspected marijuana induced hyperemesis # transaminitis # possible PUD Plan Augmentin Pantoprazole Pain med as prescribed Follow up DC clinic Follow up PCP Follow up Surgeon Follow up Gastroenterology No heavy lifting for 6 weeks Consults/Reason for consult Patient: MIRLANDE SIMON Acct: [id number] : 1995 Loc: [facility] Age/Sex: 30/F Room: 0291 / Bed: B Attending Phy: GRICELDA PARKER RESIDENT Operative Report - 2 Report Details Date: 11/12/25 Preop Diagnosis: Choledocholithiasis with acute cholecystitis Postop Diagnosis: Early acute cholecystitis Surgeon: Mateus Galvez MD Anesthesiologist: Dr. Quintana Anesthesia: General Consent: The patient was informed of the risks and benefits of the procedure. These include but are not limited to complications of anesthesia, postoperative infection, incomplete relief of symptoms, recurrence of symptoms, damage to blood vessels, nerves and tendons, deep venous thrombosis, pulmonary embolism and possible need for repeat surgery in the future. Complications: None Estimated Blood Loss: 5 mL Findings: Hypervascular normal-appearing gallbladder Indications for Surgery: Choledocholithiasis with the acute cholecystitis Name of Procedure Performed Laparoscopic cholecystectomy Procedure Details Procedure Details: Upon arrival to the operating room the patient was transferred to the operating table and placed in the supine position with arms extended. General endotracheal anesthesia was induced. Time-out was observed. Patient was prepped and draped in the standard sterile surgical fashion with chlorhexidine. I then proceeded to make an infraumbilical curvilinear incision and carried the dissection down to the fascia. Once at the fascia I grasped the umbilical stalk with a Nain clamp and walked it down to its base. Once at the base of the umbilical stalk I gained entry into the peritoneal cavity utilizing Albarran technique. I then placed a fascial retention stitch of 0 Vicryl in [id number] fashion. I then inserted the Albarran cannula and insufflated the peritoneal cavity to 15 mmHg with toleration. I then introduced a 10 mm 30 degree laparoscope, surveyed the entry site, no injuries noted. Patient was then placed in the reverse Trendelenburg [id number] position. I then placed 3 additional 5 mm working ports under direct vision at the epigastric area, right midclavicular subcostal area, and right flank area. I then directed my attention to the liver and gallbladder. The gallbladder was then grasped at the fundus with a atraumatic grasper and retracted cephalad and towards the right shoulder. A 2nd grasper was used at the infundibulum and retracted laterally, thus exposing Calot triangle. I then proceeded to incise the peritoneum at the base of the gallbladder and carried the dissection down to the liver. I then proceeded to clear all the fibrous and fatty tissue from cholesterol angle until I identified 2 structures entering the gallbladder, the cystic duct and cystic artery. Critical view of safety was obtained. I then milked the cystic duct for any stones, non felt. I then placed 3 5 mm clips proximal in the cystic duct and 1 distal. I then placed 2 5 mm clips proximal on the cystic artery and 1 distal. There was an additional posterior branch of the cystic artery that was also clipped. Artery reason duct were transected. I had some bile spillage from a hole at the infundibulum grasper site. I then proceeded to free the gallbladder off of the liver bed with electrocautery. Once the gallbladder was completely off the liver, it was placed in the Endo-Catch bag and taken out of the peritoneal cavity through the infraumbilical incision under direct vision. I then proceeded to inspect the liver bed, there was an area of small ooze that was cauterized, hemostasis achieved. I then proceeded to serially irrigated over the liver under the liver and on the gallbladder fossa until all effluent was clear. I then proceeded to take a 2nd look at the liver bed, it was hemostatic. I then looked at the clips they were all in place. This concluded the intraperitoneal portion of the operation. All counts were complete and correct. I then removed the 5 mm working ports under direct vision, no bleeding coming from abdominal wall. Peritoneal cavity was allowed to fully desufflate. Previous fascial retention suture was closed. All skin sites were closed with 4-0 Monocryl and Dermabond. 0.25% Marcaine was used as local anesthetic. Patient tolerated the procedure well and was transferred to PACU in stable condition. Specimen: Gallbladder and contents Condition Stable Disposition 2 Still a Patient MATEUS FAJARDO MD Nov 12, 2025 13:22 DICTATED BY:MATEUS FAJADRO MD DICTATED DATE/TIME:11/12/25 1322 ELECTRONICALLY SIGNED BY:MATEUS FAJADRO MD 11/12/25 132 ELECTRONICALLY CO-SIGNED BY: Patient Name: MIRLANDE SIMON Acct: [id number] Room: [facility] [place][note 3] /Bed: B Attending Physician: GRICELDA PARKER RESIDENT Loc: [facility] Unit: [id number] CONSULTATION REPORT . ................................................................................ ............................................................................... Consultation - Surgical Date Seen: Nov 12, 2025 Referring Physician Reason for Consultation Cholecystitis with choledocholithiasis History of Present Illness History of Present Illness Mrs. Villanueva is a 30-year-old female who presented to the hospital yesterday with a epigastric and right upper quadrant abdominal pain. She states that she gets this pain episodes for the past 5 years, occasionally. She has been to the hospital on several other occasions due to the same pain, and at the beginning she was treated with antiacid medications, for which she states they do not help at all. Denies fevers, chills, changes in urinary or stooling habits, acholic stools. Past Medical/Surgical History Past Medical/Surgical History PMH/PSH denies Family and Social History Family and Social History Family history noncontributory ETOH/T Ob/drugs denies Allergies and medications Allergies: Coded Allergies: NO KNOWN ALLERGIES (Unverified , 02/17/24) Home Meds Active Scripts Docusate Sodium (Docusate Sodium) 100 Mg Cap, 100 MG PO HS PRN for 30 Days, #30 CAP 2 Refills Prov:ISISMichaelALONDRAAPOORVABROOKE [facility] 05/26/24 Ibuprofen Micronized (MOTRIN TABLET) 600 Mg Tb, 600 MG PO Q6HP PRN for 20 Days, #80 TAB Prov:CJJULIUSMAHSA [facility] 05/26/24 Vit W/ Ferrous Fumara (PNV PLUS MULTIVI) Plus Tab, 1 TAB PO DAILY for 90 Days, #90 TAB 3 Refills Prov:ISISJOAOJULIUSMAHSA [facility] 05/26/24 Pantoprazole Sodium Sesquihydr (Protonix) 40 Mg Tab, 40 MG PO DAILY, #30 TAB 3 Refills Prov:BRODIERODRIGOJULIUSMAHSA [facility] 02/17/24 Review of systems Review of Systems: HEENT:Normal, CVS:Normal, RESPIRATORY:Normal, GI:Abnormal (See HPI), :Normal, MSK:Normal, NEURO:Normal Examination Vital signs Vital Signs Date Time Temp Pulse Resp B/P (MAP) Pulse Ox O2 Delivery O2 Flow Rate FiO2 11/11/25 12:35 98.3 64 19 115/80 (92) 99 98.3 11/11/25 08:00 Room Air* 0 21 Medications Current Medications Medications (Trade) Dose Ordered Sig/Sudhir Route PRN Reason Start Time Stop Time Status Last Admin Enoxaparin Sodium (Lovenox) 40 mg DAILY SC 11/11/25 10:00 11/11/25 09:06 Pantoprazole Sodium (Protonix) 40 mg DAILY IV 11/11/25 10:00 11/11/25 09:05 Sucralfate (Carafate Susp) 1 gm BID@0600,2200 PO 11/10/25 22:00 11/11/25 05:17 Ceftriaxone Sodium 50 ml @ 100 mls/hr DAILY@09 IV 11/11/25 09:00 11/11/25 09:05 Ergocalciferol (Vitamin D 50,000 Unit) 50,000 unit Q7D PO 11/11/25 14:45 11/11/25 15:49 Ergocalciferol (Vitamin D 50,000 Unit) 50,000 unit Q7D PO 11/11/25 14:45 11/11/25 15:21 DC Laboratory Labs Test 11/11/25 15:08 11/11/25 11:08 11/11/25 09:02 11/11/25 05:34 Range/Units Urine Test Negative Negative Urine Opiates Screen Pos NEGATIVE Urine Fentanyl Screen Neg NEGATIVE Urine Barbiturates Screen Neg NEGATIVE Urine Phencyclidine Screen Neg NEGATIVE Urine Amphetamines Screen Neg NEGATIVE Urine Benzodiazepines Screen Neg NEGATIVE Urine Cocaine Screen Neg NEGATIVE Urine Cannabinoids Screen Pos NEGATIVE Influenza Type A Antigen Negative Negative Influenza Type B Antigen Negative Negative SARS-CoV-2 Antigen (Rapid) Negative NEGATIVE Lipase 38 12-53 U/L Plasma/Serum Blood Alcohol < 3.0 <10 mg/dL White Blood Count 9.3 4.4-10.8 10^3/uL Red Blood Count 4.52 4.0-5.20 10^6/uL Hemoglobin 14.0 12.2-16.2 g/dL Hematocrit 40.1 # 36.0-46.0 % Mean Corpuscular Volume 88.5 80.0-100.0 fL Mean Corpuscular Hemoglobin 31.0 28.0-32.0 pg Mean Corpuscular Hemoglobin Concent 35.0 32.0-36.0 g/dL Red Cell Distribution Width 12.2 11.8-14.3 % Platelet Count 243 140-450 10^3/uL Mean Platelet Volume 8.2 6.9-10.8 fL Neutrophils (%) (Auto) 63.5 37.0-80.0 % Lymphocytes (%) (Auto) 24.7 10.0-50.0 % Monocytes (%) (Auto) 11.1 0.0-12.0 % Eosinophils (%) (Auto) 0.3 0.0-7.0 % Basophils (%) (Auto) 0.4 0.0-2.0 % Neutrophils # (Auto) 5.9 1.6-8.6 10 ^3/uL Lymphocytes # (Auto) 2.3 0.4-5.4 10 ^3/uL Monocytes # (Auto) 1.0 0-1.3 10 ^3/uL Eosinophils # (Auto) 0 0-0.8 10 ^3/uL Basophils # (Auto) 0 0-0.2 10 ^3/uL Nucleated Red Blood Cells 0.3 % Erythrocyte Sedimentation Rate 2 0-20 mm/hr Reticulocyte Count (auto) 1.34 0.5-1.5 % Prothrombin Time 12.7 H 9.3-11.8 sec Prothrombin Time INR 1.22 H 0.9-1.15 Activated Partial Thromboplast Time 25.7 24.5-34.5 SEC Sodium Level 138 136-145 mmol/L Potassium Level 3.0 L 3.5-5.1 mmol/L Chloride Level 104 98-107 mmol/L Carbon Dioxide Level 23 20-31 mmol/L Anion Gap 11 5-15 Blood Urea Nitrogen 6 L 9-23 mg/dL Creatinine 0.65 0.550-1.02 mg/dL Glomerular Filtration Rate Calc 123 >90 mL/min BUN/Creatinine Ratio 9.2 L 10.0-20.0 Serum Glucose 105 74-106 mg/dL Hemoglobin A1c 4.9 <5.7 % A1C Calcium Level 8.2 L 8.7-10.4 mg/dL Magnesium Level 2.2 1.6-2.6 mg/dL Total Bilirubin 3.4 H 0.2-1.0 mg/dL Direct Bilirubin 1.5 H <0.3 mg/dL Aspartate Amino Transferase (AST) 131 H 13-40 U/L Alanine Aminotransferase (ALT) 166 H 7-40 U/L Alkaline Phosphatase 62 46-116 U/L Lactate Dehydrogenase 278 H 120-246 U/L C-Reactive Protein High Sensitivity 0.06 <1.0 mg/dL Total Protein 6.4 5.7-8.2 g/dL Albumin 4.0 3.2-4.8 g/dL Vitamin D 25-Hydroxy 15.2 L 30.0-100 ng/mL Thyroid Stimulating Hormone (TSH) 2.44 0.55-4.78 uIU/mL Beta HCG, Quantitative < 0.0 L 1.5-4.2 mIU/mL Hepatitis A IgM Antibody Negative Hepatitis B Surface Antigen Negative Negative Hepatitis B Core IgM Antibody Negative Negative Hepatitis C Antibody Negative Negative Test 11/10/25 12:52 11/10/25 10:05 Range/Units Urine Color Yellow Yellow Urine Clarity Hazy H Clear Urine pH 8.0 5.0-9.0 Urine Specific [place] 1.026 1.001-1.035 Urine Protein Trace H Negative Urine Ketones 3+ H Negative Urine Blood Trace H Negative /uL Urine Nitrite Negative Negative Urine Bilirubin Negative Negative Urine Urobilinogen 2 H Negative mg/dL Urine Leukocyte Esterase 3+ Negative /uL Urine RBC 6 0 - 4 /hpf Urine Microscopic WBC 17 H 0-5 /HPF Urine Squamous Epithelial Cells Mod <5 /hpf Urine Bacteria Few H None Seen /hpf Urine Glucose Normal Normal mg/dL Lactic Acid Level 1.4 0.4-2.0 mmol/L Microbiology Date/Time Source Procedure Growth Status 11/10/25 10:11 Blood Blood Culture - Preliminary NO GROWTH AFTER 24 HOURS OF INCUBATION. Resulted Examination: GENERAL:Normal (AAO x3), HEENT:Normal (No icterus, neck supple), LUNGS:Normal (Nonlabored breathing with symmetric expansion), ABDOMEN:Abnormal (Nondistended, soft, depressible, no scar, no masses, no hernias, epigastric and right upper quadrant tenderness), SKIN:Normal (No jaundice) Problem List/Assessment/Plan Problems: (1) Choledocholithiasis with acute cholecystitis Assessment and Plan Mrs. Villanueva is a 30-year-old female who presents with choledocholithiasis versus passed stone and acute cholecystitis. Ultrasound shows extensive sludge and stones in the gallbladder, CBD slightly enlarged at 4 mm for her age. MRCP was reviewed and it does not show any stones in the common bile duct, likely passed the stone, given that she has elevated total bilirubin level with a predominant direct component at 1.5. Labs this morning show downtrending total bilirubin and direct bilirubin levels, this is consistent with likely passage of a stone. Patient will benefit from laparoscopic cholecystectomy. Procedure, risks, benefits, complications, and alternatives discussed with the patient and spouse. They agree with the procedure. 1. NPO 2. On-call to OR for laparoscopic cholecystectomy 3. A.m. labs: CBC, CMP, direct bilirubin 4. Pain and nausea control 5. Out of bed and ambulate Plan discussed with Plan discussed with: Patient, Spouse Visit Coding Surgery Date of Service if different f: Nov 12, 2025 Billing Provider: MATEUS FAJARDO MD Surgery Visit Codes: 40458 - INP CONSULT <110 MIN MATEUS FAJARDO MD Nov 11, 2025 16:22 DICTATED BY:MATEUS FAJARDO MD DICTATED DATE/TIME:11/11/25 1622 ELECTRONICALLY SIGNED BY:MATEUS FAJARDO MD 11/12/25 1046 ELECTRONICALLY CO-SIGNED BY: Patient: MIRLANDE SIMON Acct: [id number] : 1995 Loc: [facility] Age/Sex: 30/F [id number] Progress Note - Dictate Date Seen: Nov 12, 2025 Medical Necessity Reason Pt with a Central, PICC or Fol: No Subjective No new complaints Patient is S/P laparoscopic cholecystectomy today vital signs Vital Sign Date Time Temp Pulse Resp B/P (MAP) Pulse Ox O2 Delivery O2 Flow Rate FiO2 11/12/25 21:00 98.4 61 17 109/68 (82) 94 98.4 11/12/25 13:43 Room Air 11/12/25 13:14 6.0 100 Total Intake and Output 11/11/25 11/11/25 11/12/25 15:00 23:00 07:00 Intake Total 480 ml 796 ml 1915 ml Balance 480 ml 796 ml 1915 ml medications Current Medications Medications Dose Ordered Sig/Sudhir Route Start Time Stop Time Status Last Admin Dose Admin Sodium Chloride 10 ml Q8HR IV 11/10/25 14:00 11/12/25 14:19 10 ML Sodium Chloride 1,000 ml @ 120 mls/hr Q8H20M IV 11/10/25 10:15 11/12/25 08:53 120 MLS/HR Ondansetron HCl 4 mg Q4HP PRN IV 11/10/25 10:15 11/12/25 06:31 4 MG Enoxaparin Sodium 40 mg DAILY SC 11/11/25 10:00 11/12/25 09:06 40 MG Metoclopramide HCl 5 mg Q6HPRN PRN IV 11/10/25 10:15 11/12/25 08:42 5 MG Pantoprazole Sodium 40 mg DAILY IV 11/11/25 10:00 11/12/25 09:06 40 MG Sucralfate 1 gm BID@0600,2200 PO 11/10/25 22:00 11/12/25 05:49 1 GM Ceftriaxone Sodium 50 ml @ 100 mls/hr DAILY@09 IV 11/11/25 09:00 11/12/25 09:05 100 MLS/HR Metronidazole 100 ml @ 100 mls/hr Q8HR IV 11/10/25 14:00 11/12/25 14:19 100 MLS/HR Ergocalciferol 50,000 unit Q7D PO 11/11/25 14:45 11/11/25 15:49 50,000 UNIT Acetaminophen 650 mg Q6HR PO 11/12/25 13:15 Acetaminophen/ Hydrocodone Bitart 1 tab Q4HPRN PRN PO 11/12/25 13:15 11/12/25 15:50 1 TAB Acetaminophen/ Hydrocodone Bitart 1 tab Q4HP PRN PO 11/12/25 13:15 Hydromorphone HCl 0.25 mg Q6HPRN PRN IV 11/12/25 15:15 11/12/25 20:15 0.25 MG laboratory and microbiology Laboratory Tests 11/12/25 04:51 Test 11/12/25 04:51 Range/Units Serum Glucose 86 74-106 mg/dL Prognosis Plan Continue supportive care Monitor labs Advance diet as tolerated Outpatient follow up with GI Services upon discharge Protonix 40 mg IV daily Dietary Evaluation Review Comments: Nutrition Recommendation: 1) Consider cardiac soft diet 2) Monitor PO intake, lab values, weight trend, and I/O Expected Outcomes/Goals: Lab values to improve FU 3-5 days Plan discussed with: Patient LIO RODRIGUEZ MD Nov 12, 2025 21:24 E/M VISIT PERFORMED BY: TRANSCRIBED BY:LIO RODRIGUEZ MD TRANSCRIBED DATE/TIME:11/12/252123 ELECTRONICALLY SIGNED BY:LIO RODRIGUEZ MD 11/12/252123 ELECTRONICALLY CO-SIGNED BY: Operations or Procedures [place] [id number] Ph: [phone] DIAGNOSTIC IMAGING Diagnostic Imaging Report : [id number] Signed PATIENT: LEYLA SIMONCCT: [id number] UNIT: [id number] : 1995 LOC: ER ROOM / BED: / AGE / SEX: 30 / F ADM STATUS: REG ER SERVICE 0921 ORDERING PHYSICIAN: PANCHO BARRERA MD PROCEDURE(s): PELUS - PELVIC REASON: torsion ORDER NUMBER(s): [id number], ACCESSION NUMBER(s): [id number] CLINICAL HISTORY: torsion TECHNIQUE: Ultrasound examination of the female pelvis was performed transabdominally. Transvaginal ultrasound was performed to more optimally assess the endometrial cavity. COMPARISON: None FINDINGS: TRANSABDOMINAL IMAGING: The bladder is not well distended and therefore not well evaluated. Endovaginal imaging was thereafter performed for better depiction of the anatomy. ENDOVAGINAL IMAGING: The uterus measures 7.3 x 4.8 by 3.8 CM. The myometrial echotexture is homogenous. No focal myometrial abnormality is seen. The endometrial lining is normal in thickness, measuring 7 mm. The right ovary measures 2.6 x 2.0 x 1.7 cm. The left ovary is not seen, likely obscured by overlying bowel gas. Normal color doppler flow and vascular waveforms. There is no free fluid. IMPRESSION: No significant sonographic abnormality of the imaged pelvis. Nonvisualization of the left ovary. ATED BY: CHET ADAM MD DICTATED DATE/TIME: 11/10/25 1016 SIGNED BY: CHET ADAM MD SIGNED DATE/TIME: 11/10/25 1016 CC: [address] [id number] Ph: [phone] DIAGNOSTIC IMAGING Diagnostic Imaging Report : [id number] Signed PATIENT: ODILON SIMONT: [id number] UNIT: [id number] : 1995 LOC: ER ROOM / BED: / AGE / SEX: 30 / F ADM STATUS: REG ER SERVICE 0936 ORDERING PHYSICIAN: PNACHO BARRERA MD PROCEDURE(s): GBUS - GALLBLADDER REASON: pain ORDER NUMBER(s): [id number], ACCESSION NUMBER(s): [id number] CLINICAL HISTORY: pain TECHNIQUE: Transabdominal sonogram was performed of the right upper quadrant. COMPARISON: None FINDINGS: The liver is normal in echogenicity. There is no focal parenchymal abnormality. No intrahepatic biliary ductal dilatation is present. The liver measures 16 cm. The gallbladder contains a large amount of sludge with no evidence for stones or wall thickening. The sonographic Swenson's sign is reported to be absent. The common bile duct is normal in caliber, measuring 4 mm. The visualized pancreas is grossly unremarkable. The right kidney is normal in echogenicity and measures 9.9 cm in length. There is no evidence for hydronephrosis or calculi. IMPRESSION: Large amount of gallbladder sludge. ATED BY: CHET ADAM MD DICTATED DATE/TIME: 11/10/25 1014 SIGNED BY: CHET ADAM MD SIGNED DATE/TIME: 11/10/25 1014 CC: [place] [id number] Ph: [phone] DIAGNOSTIC IMAGING Diagnostic Imaging Report : [id number] Signed PATIENT: ODILON SIMONT: [id number] UNIT: [id number] : 1995 LOC: [facility] / BED: [facility] / B AGE / SEX: 30 / F ADM STATUS: ADM IN SERVICE [id number] ORDERING PHYSICIAN: GRICELDA PARKER PROCEDURE(s): KIDUS - KIDNEY REASON: ?pylonephritis ORDER NUMBER(s): [id number], ACCESSION NUMBER(s): [id number] RENAL ULTRASOUND CLINICAL HISTORY: Pyelonephritis TECHNIQUE: Multiple grayscale ultrasound images were obtained through the kidneys and urinary bladder. COMPARISON: None FINDINGS: Right kidney: Measures 12.3 x 3.8 x 4.7 cm. No hydronephrosis. Left kidney: Measures 12.8 x 4.4 x 5.1 cm. Mild hydronephrosis. Urinary bladder: Left ureteral jet is not visualized. The right ureteral jet is seen. Mild urinary bladder wall thickening. Prevoid volume is 61 mL IMPRESSION: 1. Mild left hydronephrosis. 2. Mild bladder wall thickening, nonspecific. Correlate with urinalysis if there is clinical concern for cystitis. ATED BY: CORINA HITCHCOCK MD DICTATED DATE/TIME: 11/11/25951 SIGNED BY: CORINA HITCHCOCK MD SIGNED DATE/TIME: 11/11/25951 CC: [place] [id number] Ph: [phone] DIAGNOSTIC IMAGING Diagnostic Imaging Report : [id number] Signed PATIENT: LEYLA SIMONCCT: [id number] UNIT: [id number] : 1995 LOC: [facility] ROOM / BED: [address] [place] [address] AGE / SEX: 30 / F ADM STATUS: ADM IN SERVICE 1129 ORDERING PHYSICIAN: GERRI WATSON RESIDENT PROCEDURE(s): MRCP - MRCP MRI REASON: R/O Acute cholecystitis ORDER NUMBER(s): [id number], ACCESSION NUMBER(s): [id number] MRI MRCP MRI Attending Name: MANUEL VALDEZ RESIDENT COMPARISON: Ultrasound abdomen done 11/10/2020 INDICATION: R/O Acute cholecystitis TECHNIQUE: MRCP was performed without the use of intravenous contrast using a MRI imaging system. Three-dimensional MRCP was performed using maximum intensity projection reconstruction on an independent workstation under concurrent supervision. FINDINGS: Visualized lower thorax: Limited imaging of the thorax demonstrates no suspicious pleural or parenchymal disease. Liver: Normal in morphology and signal intensity. Gallbladder: No evidence of cholelithiasis or gallbladder wall thickening. Biliary system: There is no intrahepatic or extrahepatic bile duct dilatation. No filling defect to suggest choledocholithiasis. Spleen: Normal in morphology and signal intensity. Pancreas: Normal in morphology and signal intensity. Adrenal glands: Normal in morphology and signal intensity. Kidneys: The kidneys are symmetric in size and appearance. No hydronephrosis. Urinary tract: The included ureters, as visualized, are normal in course and caliber. GI tract: The included portions of the bowel are within normal limits. Lymph nodes: No enlarged lymph nodes. Peritoneum: No ascites. Musculoskeletal: The bone marrow signal intensity is within normal limits. IMPRESSION: 1. No intra or extra hepatic biliary ductal dilatation. No MRI evidence of choledocholithiasis or cholecystitis. ATED BY: LAMBERTO DIAZ MD DICTATED DATE/TIME: 11/11/251556 SIGNED BY: LAMBERTO DIAZ MD SIGNED DATE/TIME: 11/11/251556 CC: [place] [id number] Ph: [phone] DIAGNOSTIC IMAGING Diagnostic Imaging Report : [id number] Signed PATIENT: LEYLA SIMONCCT: [id number] UNIT: [id number] : 1995 LOC: [facility] ROOM / BED: [address] [place] [address] AGE / SEX: 30 / F ADM STATUS: ADM IN SERVICE 1640 ORDERING PHYSICIAN: GRICELDA PARKER RESIDENT PROCEDURE(s): CXR1 - CHEST XRAY 1 VIEW REASON: ?PNA ORDER NUMBER(s): [id number], ACCESSION NUMBER(s): [id number] CHEST RADIOGRAPH INDICATION: PNA TECHNIQUE: Single frontal view of the chest was obtained COMPARISON: None FINDINGS: Lines and Tubes: None Lungs: No focal consolidation. Pleura: No effusion. No pneumothorax. Cardiomediastinal contours: Unremarkable Bones: No acute osseous abnormality. IMPRESSION: 1. No acute cardiopulmonary disease. ATED BY: KRISSY VOSS MD DICTATED DATE/TIME: 11/11/251743 SIGNED BY: KRISSY VOSS MD SIGNED DATE/TIME: 11/11/251743 CC: Condition at Discharge: Stable Final Diagnosis/Problems List # sepsis likely due to acute complicated UTI # intractable abdominal pain with nausea and vomiting likely due to the above/gastritis/gastroenteritis/marijuana induced hyperemesis # early cholecystitis, status post laparoscopic cholecystectomy # acute gastroenteritis likely infectious etiology # suspected marijuana induced hyperemesis Discharge Disposition: Home Discharge Instruct/Medications Diet: Regular Activity: Light activity Activity comment: No heavy lifting for 6 weeks Follow Up/Referral: [facility] PCP Surgery Gastroenterology Medications: As per EMS Scheduled Amoxicillin & Pot Clavulanate (Augmentin Tablet), 875 MG PO BID Pantoprazole Sodium Sesquihydr (Protonix), 40 MG PO DAILY Vit W/ Ferrous Fumara (Pnv Plus Multivi), 1 TAB PO DAILY Scheduled PRN Acetaminophen (Tylenol), 650 MG PO Q6HP PRN Docusate Sodium (Docusate Sodium), 100 MG PO HS PRN Ibuprofen Micronized (Motrin Tablet), 600 MG PO Q6HP PRN Discharge Statement: "Patient was advised to return to the ER or call 911 if any headaches, dizziness, shortness of breath, chest pain, abdominal pain, bleeding, fevers, or worsening of medical condition. Patient was counseled about treatment plan, medications, possible side effects, patientverbalized understanding. All questions were answered to the best of my ability. This discharge took greater then 30 minutes in planning, reviewing documentation, counseling the patient, and discussing with other team members." ASSESSMENT ASSESSMENT Assessment Early acute cholecystitis Visit Coding STANDARD RES Billing Provider: RONIT PHILLIPS MD Date of Service if different f: Nov 13, 2025 Common Visit Codes: 70487-MUV/OBS DISCH DAY >30min GRICELDA PARKER RESIDENT Nov 13, 2025 12:11
[2025-11-13 13:00] VITALS: BP 109/74; PULSE 54; RESP 16; TEMP 98.6; O2SAT 99
[2025-11-13] MEDS ORDERED: AUG875T PO (13:36)
[2025-11-13] MEDS ORDERED: ACET1CAP14 PO (13:36)
[2025-11-13 13:59] LABS: Chloride 101 mmol/L (98-107); Potassium 3.7 mmol/L (3.5-5.1); Sodium 136 mmol/L (136-145)
[2025-11-13 14:00] LABS: Anion Gap 8 (5-15); Carbon Dioxide 27 mmol/L (20-31)
[2025-11-13 14:01] LABS: Calcium 8.7 mg/dL (8.7-10.4)
[2025-11-13 14:05] LABS: Glucose 108 mg/dL (74-106)
[2025-11-13 14:17] VITALS: BP 109/74; PULSE 54; RESP 16; TEMP 37; O2SAT 99
[2025-11-13 14:40] LABS: BUN/Creatinine Ratio 11.7 (10.0-20.0); Blood Urea Nitrogen 9 mg/dL (9-23)
[2025-11-13] MEDS ORDERED: ROCURONIUM 10MG/ML 10ML VIAL IV ONE (15:05)
[2025-11-13] MEDS ORDERED: LIDOCAINE 1% INJ PF 5ML AMP IJ ONE (15:05)
[2025-11-13] MEDS ORDERED: METOCLOPRAMIDE HCL 5MG/ml INJ 2ml VIAL IV ONE (15:05)
[2025-11-13] MEDS ORDERED: PROPOFOL 10 MG/ML 20 ML IV ONE (15:05)
--- NOTE | 2025-11-13 17:24 | DVHPN2 ---
Progress Note - Dictate Date Seen: Nov 13, 2025 (Late entryPatient seen at 12 noon) Medical Necessity Reason Pt with a Central, PICC or Fol: No Subjective Postop day 1. S/P laparoscopic cholecystectomy Patient feels much better She is ambulating She is tolerating a clear liquid diet No new complaints Mild leukocytosis, liver enzymes trending down vital signs Vital Sign Date Time Temp Pulse Resp B/P (MAP) Pulse Ox O2 Delivery O2 Flow Rate FiO2 11/13/25 14:17 37.0 54 16 99 11/13/25 13:00 109/74 (86) 11/13/25 08:00 Room Air* 0 21 Total Intake and Output 11/12/25 11/12/25 11/13/25 15:00 23:00 07:00 Intake Total 150 ml 600 ml 500 ml Balance 150 ml 600 ml 500 ml objective General Appearance: laying in bed, Alert, Oriented X3, Cooperative, no distress ambulating HEENT: jaundice in sclera Atraumatic, PERRLA, EOMI, Mucous membr. moist/pink Respiratory: Normal air movement, no roncus or crackles. Cardiovascular: Regular rate, Normal S1, Normal S2, No murmurs, no chest pain on palpation of the chest. Abdominal: Wearing a compression garment, diffuse mild tenderness. Extremities; normal tone. no edema. Skin: jaundice in face and abdomen. no rash Neuro: Normal speech, Strength at 5/5 X4 ext, Normal tone, Sensation intact Psych/Mental Status: Oriented X3, Cooperative laboratory and microbiology Laboratory Tests 11/13/25 13:36 11/13/25 05:35 Test 11/13/25 13:36 Range/Units Serum Glucose 108 H 74-106 mg/dL Problems(with codes): (1) Liver enzyme elevation (2) Cholelithiasis and cholecystitis without obstruction (3) Nausea & vomiting (4) Marijuana use during Prognosis Plan Continue conservative management Advance diet as tolerated Continue Prilosec or Protonix for history of gastritis Outpatient follow up with GI Services for any ongoing GI symptoms Once again thank you for allowing me to participate in the care of this patient Dietary Evaluation Review Comments: Nutrition Recommendation: 1) Consider cardiac soft diet 2) Monitor PO intake, lab values, weight trend, and I/O Expected Outcomes/Goals: Lab values to improve FU 3-5 days Plan discussed with: Patient, Spouse LIO RODRIGUEZ MD Nov 13, 2025 17:24
--- NOTE | 2025-11-13 20:07 | DVHPN2 ---
Progress Note - Surgical Date Seen: Nov 13, 2025 Post op day Post op day: 1 Subjective Review of Systems: Deferred Objective Vital signs Vital Sign Date Time Temp Pulse Resp B/P (MAP) Pulse Ox O2 Delivery O2 Flow Rate FiO2 11/13/25 14:17 37.0 54 16 99 11/13/25 13:00 109/74 (86) 11/13/25 08:00 Room Air* 0 21 Total Intake and Output 11/12/25 11/12/25 11/13/25 14:59 22:59 06:59 Intake Total 150 ml 600 ml 500 ml Balance 150 ml 600 ml 500 ml Laboratory Laboratory Tests 11/13/25 13:36 11/13/25 05:35 Test 11/13/25 13:36 Range/Units Serum Glucose 108 H 74-106 mg/dL Microbiology Date/Time Source Procedure Growth Status 11/11/25 11:08 Voided Urine Urine Culture - Final Complete 11/10/25 10:11 Blood Blood Culture - Preliminary NO GROWTH AFTER 72 HOURS OF INCUBATION. Resulted Examination: GENERAL:Normal (AAO x3), HEENT:Normal (No icterus, neck supple), ABDOMEN:Normal (Nondistended, soft, depressible appropriate tenderness, incision sites with skin glue overlying and without surrounding signs of infection), SKIN:Normal (No jaundice) Labs and/or images reviewed: Labs reviewed by me Problem List/Assessment/Plan Assessment and Plan Mrs. Villanueva is a 30-year-old female who presented with likely choledocholithiasis with the acute cholecystitis but the stone passed on its own she is currently postop day 1 from laparoscopic cholecystectomy. Patient doing well, tolerating diet, pain well controlled and labs within normal limits. Patient is cleared per surgical standpoint for discharge. 1. Cleared for discharge 2. Low-fat diet 3. No lifting over 10 lb for 6 weeks 4. May shower, soap and water okay to run over incision sites. No swimming and/or bathing 5. For baseline pain control recommend Tylenol and/or ibuprofen, for best results alternate the medication and follow creative project manager's directions. 6. Recommend [place] 5-325 mg 1 tab p.o. PRN breakthrough pain 7. No driving while taking narcotics 8. Follow up with Dr. Jacobson at surgery Clinic in 2 weeks Plan discussed with Plan discussed with: Patient Visit Coding Surgery Date of Service if different f: Nov 13, 2025 Billing Provider: DIONICIO FAJARDO MD Surgery Visit Codes: 34589-[id number] INP/OBS CARE(HIGH) DIONICIO FAJARDO MD Nov 13, 2025 20:07
== END 2025-11-13 15:06 | disposition home or self-care (01) | DRG 854 ==
LOC: ER 08:26 → OVERFLOW 10:12 → WEST WING 16:30
PROVIDERS: ADMIT Student in an Organized Health Care Education/Training Program; ATTEND Student in an Organized Health Care Education/Training Program
PROC: 0FT44ZZ Resection of Gallbladder, Percutaneous Endoscopic Approach (ICD-10-PCS; principal; 2025-11-12 12:01)
DX: A41.9 Sepsis, unspecified organism (principal); A09 Infectious gastroenteritis and colitis, unspecified; K81.0 Acute cholecystitis; N13.6 Pyonephrosis; E86.0 Dehydration; Z20.822 Contact with and (suspected) exposure to COVID-19; K29.00 Acute gastritis without bleeding; K82.8 Other specified diseases of gallbladder; F12.988 Cannabis use, unspecified with other cannabis-induced disorder; R74.01 Elevation of levels of liver transaminase levels; E87.6 Hypokalemia
CPT/HCPCS: 36415; 71045; 74181; 76705; 76775; 76830; 76856; 80048; 80053; 80074; 80307; 80320; 81001; 81025; 82247; 82248; 82306; 82550; 82607; 82746; 83010; 83036; 83605; 83615; 83690; 83735; 84443; 84702; 85025; 85045; 85610; 85652; 85730; 86141; 86850; 86900; 86901; 87040; 87086; 87426; 87804; 93005; 96360; G0378; J0131; J2250; J2405; J2470; J2704; J3480; J3490